=== PATIENT | female | born 1970 | race Caucasian/White ===

== ENCOUNTER 2018-06-11 17:22 | Inpatient (IN) ==
--- NOTE | 2018-06-11 22:30 | Internal Med History&Physical ---
<Marvel Stewart S - Last Filed: 06/12/18 00:13> Date of Encounter: 06/12/18 Time of Encounter: 22:30 Internal Medicine - H&P: HPI Chief complaint: "SOB" Admitted From: Hospital to Hospital Transfer Plans for Post Hospital Care: Home History of present illness: Ms. Gaspar is a 47 year old female with PMH of T2DM who is here from [place] transfer. She initially went ot the hospital because she has been feeling ill the last few days. She has a vague description and is overall a poor historian. She states she has been feeling weaker and more tired. She has had a decreased appetitie and has hardly ate nothing the last few days. She also has complaints of cough. It has been a dry hacking cough and has minimal sputum production. She denies any home oxygen use, hemoptysis, previous diagnosis of COPD or personal hx of lung cancer. She states she has been more SOB lately, however, is still able to complete ADL's. She denies any n/v/d, constipation, headache or blurry vision. She does have c/o peripheral neuropathy for which she takes gabapentin. At [facility] she was found to have a sodium of 115 and bilateral infiltrates. She was given a dose of levaquin and was transferred for further evaluation. The pt denies any seizures at home, or convulsions. She denies hx of heavy alcohol abuse and states she doesn't drink. She does smoke 1.5 ppd of cigarettes, however. In the room the pt had a POC glucose of 441. She denies watching her blood sugars at home and states she never monitors or keeps up with tracking what her normal baseline BG is. She denies knowing what her sugars usually do. Past Med Surg Social Fam HX - Past Medical History Medical history: diabetes, other Additional medical history: DDD Psychiatric history: no psych history - Past Surgical History Surgical History: no surgical history Additional surgical history: Carpal tunnel RT - Social History Smoking Status: Current every day smoker Smokeless Tobacco Status: No (1 PPD) Alcohol use: none Drug use: none Internal Medicine - H&P: Meds metFORMIN [Glucophage] 1,000 mg PO BIDWM 10/07/15 [History] Gabapentin [Neurontin] 600 mg PO TID 03/10/16 [History] HYDROcodone/Acet 5/325 mg [Marquez 5-325 mg] 1 tab PO Q6H PRN 06/11/18 [History] Allergy/AdvReac Type Severity Reaction Status Date / Time No Known Allergies Allergy Verified 02/17/18 07:05 All Systems PM: A 10-system review of systems was performed and is negative for pertinent findings except as documented above in the HPI. - Constitutional Constitutional: fatigue, fever(s), malaise, weakness, no night sweats, no weight loss - EENT Eyes: no blurry vision - Cardiovascular Cardiovascular ROS IM: dyspnea, dyspnea on exertion, no chest pain - Respiratory Respiratory: cough, dyspnea, dyspnea on exertion, chest congestion, pain with cough, no excessive phlegm production, no change in phlegm color - Gastrointestinal Gastrointestinal: abdominal pain, no nausea, no vomiting - Musculoskeletal Musculoskeletal ROS IM: back pain, myalgias - Integumentary Integumentary IM: no rash, no skin ulcer - Neurological Neurological ROS: no convulsions, no dizziness, no frequent falls - Psychiatric Psychiatric: no confusion, no difficulty concentrating - Endocrine Endocrine IM: fatigue - Hematologic/Lymphatic Hematologic/Lymphatic: no easy bleeding, no easy bruising - Constitutional General appearance: Present: cooperative, A&O X 3, no acute distress Exam: x - Head Head exam: Present: atraumatic, normocephalic - Eye Eye exam: Present: sclera anicteric - ENT ENT exam: Present: mucous membranes moist - Neck Neck exam general surgery: Present: trachea midline - Respiratory Respiratory exam: Present: decreased breath sounds, prolonged expiratory phase, wheezes. Absent: accessory muscle use, respiratory distress - Expanded Respiratory Exam Location: decreased breath sounds: Left, Right, Upper, Lower, wheezes: Left, Right, Upper, Lower - Cardiovascular Cardiovascular exam: Present: RRR, +S1, +S2. Absent: clicks, gallop, JVD, rubs - GI/Abdominal GI/Abdominal exam: Present: soft, tenderness, no peritoneal signs. Absent: distended, firm, guarding, hernia, rebound - Extremities Exam Extremities exam: Present: normal capillary refill, normal inspection, warm. Absent: calf tenderness, pedal edema, tenderness - Neurological Exam Neurological exam: Present: alert, oriented X3, no focal deficits - Psychiatric Psychiatric exam: Present: anxious - Skin Skin exam: Present: dry, intact, warm Internal Med - H&P Results - Labs CBC & Chem 7: 06/11/18 22:47 - Assessment and plan (1) Hyponatremia Current Visit: No Status: Acute Assessment and plan: Pt presenting with a sodium of 115, pt does have a hx of low sodium recorded in [facility] - does endorse decreased appetite and fluid intake The pt does appear euvolemic on exam, no rhonchi present and minimal pitting edema - CXR from transfer hospital showed bilateral lung infiltrates, basilar predominance, concerning for pneumonia Pt does have risk factors for lung cancer, including 1.5 ppd x 30 yr smoking hx Denies alcohol use and denies heavy drinking Cannot r/o underlying lung carcinoma Corrected sodium 123, accounting for POC glucose of 441 - psuedohyponatremia from hyperglycemia vs SIADH Currently pt does NOT meet any criteria for sepsis; WBC count WNL, HR and RR WNL. Plan: - 100cc/hr NS x 1 bag - check CT chest in the AM, r/o underlying malignancy - CBC in AM - BMP STAT and again in AM - HDSS to account for pseudohyponatremia 2/2 hyperglycemia - monitor closely for HHS vs DKA - glucose checks - ADA diet - urine studies urine sodium, urine creatinine urine osmolality - consult to nephrology, will call in AM - start azithromycin and rocephin to cover pneumonia, blood cx pending, duonebs for SOB - strep pneumo and legionella antigens pending - random cortisol pending, given hyperkalmemia (2) Hyperglycemia Current Visit: Yes Status: Acute Assessment and plan: Glucose at [place] 336, repeat POC glucose 441 - pt denies measuring glucose at home, is not compliant with finger sticks and monitoring BG at home - likely contributing to hyponatremia, corrected Na is 123 (3) Type 2 diabetes mellitus Current Visit: Yes Status: Acute Assessment and plan: Pt is a T2DM on home metformin, not on home insulin - denies compliance with daily BG monitoring - has had a decreased appetite lately, not eating or drinking very much BG on POC check was 441, likely contributing to hyponatremia - corrected Na 123 (Na 115 on BMP from [place]) Plan: - see plan as above - hold metformin - HDSS, ADA diet 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 Diabetes mellitus complication status: with unspecified complications Qualified Code(s): E11.8 - Type 2 diabetes mellitus with unspecified complications (4) DVT prophylaxis Current Visit: Yes Status: Acute Assessment and plan: sq heparin (5) Bilateral pneumonia Current Visit: No Status: Acute Assessment and plan: CXR from transfer hospital showed bilateral lung infiltrates, basilar predominance, concerning for pneumonia - she was given dose of levaquin at [facility], will continue azithromycin /rocephin - duonebs prn - blood cx pending - legionella/strep pneumo antigens pending Qualifiers: Pneumonia type: due to unspecified organism Lung location: lower lobe of lung Qualified Code(s): J18.1 - Lobar pneumonia, unspecified organism (6) Dyspnea Current Visit: No Status: Acute Assessment and plan: 2/2 pneumonia. (7) Hypertension Current Visit: Yes Status: Acute Assessment and plan: Lopressor ivp q6hr prn SBP >160 Qualifiers: Hypertension type: unspecified Qualified Code(s): I10 - Essential (primary) hypertension (8) Tobacco abuse Current Visit: Yes Status: Acute Assessment and plan: 1.5ppd smoker - counsled - nrt offered (9) Hyperkalemia Current Visit: Yes Status: Acute Assessment and plan: K of 5.4 Plan: - EKG STAT - kayexalate 30mg PO once - calcium gluc - random cortisol to r/o adrenal insufficiency, given hyponatremia co-existing - Time Spent With Patient Total time spent is greater than 50% in coordination of care (as documented) at patient's floor/unit and/or counseling patient: 25 - 35 minutes <Conner Robles - Last Filed: 06/12/18 07:27> Date of Encounter: 06/12/18 Internal Medicine - H&P: HPI History of present illness: Ms. Gaspar is a 47 year old female All Systems PM: A 10-system review of systems was performed and is negative for pertinent findings except as documented above in the HPI. - Constitutional Vitals: Temp Pulse Resp BP Pulse Ox 98.2 F 70 18 152/79 96 06/12/18 03:17 06/12/18 03:17 06/12/18 04:16 06/12/18 03:17 06/12/18 04:16 Internal Med - H&P Results - Labs CBC & Chem 7: 06/12/18 03:36 06/12/18 03:36 Labs: Short CBC 06/12/18 Range/Units 03:36 WBC 7.6 (4.3-11.1) K/mcL Hgb 10.9 L (11.5-15.4) g/dL Hct 30.4 L (35.3-44.9) % Plt Count 225 (140-400) K/mcL Neutrophils # 6.8 (1.6-8.9) K/mcL BMP 06/11/18 06/12/18 22:47 03:36 Sodium 117 L* 122 L Potassium 5.4 H 4.3 Chloride 85 L 90 L Carbon Dioxide 24 23 BUN 8 11 Creatinine 0.47 L 0.48 L Glucose 418 H 370 H Calcium 8.7 9.0 Urine 06/11/18 Range/Units 23:10 Urine Color Yellow (Yellow) Urine Clarity Clear (Clear) Urine pH 6.5 (5.0-8.0) pH Units Ur Specific [place] 1.011 (1.010-1.025) Urine Protein 100 H (Neg-Trace) mg/dL Urine Glucose (UA) >=1000 H (Normal) mg/dL - Time Spent With Patient Total time spent is greater than 50% in coordination of care (as documented) at patient's floor/unit and/or counseling patient: - Attending Attestation I saw and evaluated the patient. I reviewed the residents note, performed my own physical examination and agree with findings and plan as documented in the residents note. Patient seen and examined on 06/12/18. Patient's corrected sodium around 123, has urine sodium of 11.6 and urine osmolality of 270. will try slow fluid hydration, and monitor BMPs closely. She also found to have pneumonia, will continue antibiotics. Follow up blood cultures. Patient currently stable, no acute distress. Nephrology consult later today, appreciate recommendations.
[2018-06-11] MEDS ORDERED: D5% in Water 1,000 ML IVC PRN (22:51)
[2018-06-11] MEDS ORDERED: Dextrose Gel 15 GM/37.5 ML TUBE PO PRN ×2 (22:51)
[2018-06-11] MEDS ORDERED: *HR* Dextrose 50 % in Water (Syg) 50 ML SYRINGE IVP PRN (22:51)
[2018-06-11] MEDS ORDERED: *HR* Metoprolol 5 MG/5 ML VIAL IVP PRN (23:00)
[2018-06-11 23:26] LABS: BUN/Creatinine Ratio 17 (6-26); Blood Urea Nitrogen 8 mg/dL (6-20); Calcium 8.7 mg/dL (8.6-10.3); Carbon Dioxide 24 mEq/L (23-29); Chloride 85 mEq/L (98-107); Glucose 418 mg/dL (70-105); Osmolality,Calculated 260 (280-300); Potassium 5.4 mEq/L (3.5-5.1); Sodium 117 mEq/L (136-145); eGFR For Non-African Americans > 60 (> 60)
[2018-06-11 23:27] LABS: Bilirubin,Urine Negative (Negative); Blood,Urine Moderate (Negative); Clarity,Urine Clear (Clear); Color,Urine Yellow (Yellow); Glucose,Urine (UA) >=1000 mg/dL (Normal); Ketones,Urine 15 mg/dL (Negative); Leukocyte Esterase,Urine Negative (Negative); Nitrite,Urine Negative (Negative); PH,Urine 6.5 pH Units (5.0-8.0); Protein,Urine 100 mg/dL (Neg-Trace); Specific Gravity,Urine 1.011 (1.010-1.025); Urobilinogen,Urine Normal (Normal)
[2018-06-11 23:29] LABS: Bacteria,Urine None Seen per hpf (None-Few); Hyaline Casts,Urine None Seen per lpf (None-Few); RBC,Urine 0-3 per hpf (0-3); Squamous Epithelial Cell,Urine None Seen per lpf (None-Few); WBC,Urine 0-3 per hpf (0-3)
[2018-06-11] MEDS ORDERED: Ipratropium/Albuterol Neb 3 ML IH ONE (23:29)
[2018-06-11] MEDS: Ipratropium/Albuterol Neb 3 ML IH SCH (23:44)
[2018-06-11] MEDS ORDERED: 0.9 % Sodium Chloride 1,000 ML IVC SCH (23:45)
[2018-06-12] MEDS: *HR* Heparin 5,000 UNIT/ML VIAL SQ SCH ×3 (00:07→18:07)
[2018-06-12] MEDS: Insulin LISPRO 300 UNITS/3 ML VIAL SQ SCH ×5 (00:08→21:49)
[2018-06-12] MEDS: Gabapentin 300 MG CAPSULE PO SCH ×4 (00:09→21:52)
[2018-06-12] MEDS: cefTRIAXone 2,000 MG in Water for inj. (sterile) 20 ML 20 ML IVP SCH ×2 (00:10→23:45)
[2018-06-12] MEDS ORDERED: Nicotine 14 MG PATCH.TD24 TD PRN (00:11)
[2018-06-12] MEDS ORDERED: *HR* HYDROcodone/Acet 5/325 mg TABLET PO PRN (00:35)
[2018-06-12 04:16] LABS: Hematocrit 30.4 % (35.3-44.9); Hemoglobin 10.9 g/dL (11.5-15.4); Immature Granulocytes % 0.7 % (0-4); Lymphocytes # 0.5 K/mcL (0.6-4.6); Lymphocytes % 6.1 %; Mean Corpuscular HGB Conc 35.9 g/dL (31.6-35.5); Mean Corpuscular Hemoglobin 30.4 pg (28.0-33.3); Mean Corpuscular Volume 84.7 fL (83.0-100.0); Mean Platelet Volume 9.8 fL (9.4-12.4); Monocytes # 0.2 K/mcL (0.0-1.3); Monocytes % 3.2 %; Neutrophils # 6.8 K/mcL (1.6-8.9); Platelet Count 225 K/mcL (140-400); Red Blood Count 3.59 M/mcL (3.82-4.97); Red Cell Distribution Width 12.7 % (11.5-14.5)
[2018-06-12] MEDS: Ipratropium/Albuterol Neb 3 ML IH SCH ×4 (04:16→22:32)
[2018-06-12 04:31] LABS: BUN/Creatinine Ratio 23 (6-26); Blood Urea Nitrogen 11 mg/dL (6-20); Carbon Dioxide 23 mEq/L (23-29); Chloride 90 mEq/L (98-107); Glucose 370 mg/dL (70-105); Osmolality,Calculated 268 (280-300); Potassium 4.3 mEq/L (3.5-5.1); Sodium 122 mEq/L (136-145); eGFR For Non-African Americans > 60 (> 60)
--- NOTE | 2018-06-12 09:06 | Internal Med Progress Note ---
<Kanchan Rockwell - Last Filed: 06/12/18 17:55> Hospitalist Progress Note - Encounter Date of Encounter: 06/12/18 - Exam Vitals: Temp Pulse Resp BP Pulse Ox 97.7 F 92 20 168/74 95 06/12/18 11:23 06/12/18 11:23 06/12/18 11:23 06/12/18 11:23 06/12/18 11:23 - Time Spent with Patient Total time spent is greater than 50% in coordination of care (as documented) at patient's floor/unit and/or counseling patient: Internal Medicine: Result - Labs CBC & Chem 7: 06/12/18 03:36 06/12/18 16:40 Labs: Short CBC 06/12/18 Range/Units 03:36 WBC 7.6 (4.3-11.1) K/mcL Hgb 10.9 L (11.5-15.4) g/dL Hct 30.4 L (35.3-44.9) % Plt Count 225 (140-400) K/mcL Neutrophils # 6.8 (1.6-8.9) K/mcL BMP 06/11/18 06/12/18 06/12/18 22:47 03:36 08:31 Sodium 117 L* 122 L 122 L Potassium 5.4 H 4.3 Chloride 85 L 90 L Carbon Dioxide 24 23 BUN 8 11 Creatinine 0.47 L 0.48 L Glucose 418 H 370 H Calcium 8.7 9.0 06/12/18 12:07 Sodium 127 L Potassium Chloride Carbon Dioxide BUN Creatinine Glucose Calcium Urine 06/11/18 Range/Units 23:10 Urine Color Yellow (Yellow) Urine Clarity Clear (Clear) Urine pH 6.5 (5.0-8.0) pH Units Ur Specific [place] 1.011 (1.010-1.025) Urine Protein 100 H (Neg-Trace) mg/dL Urine Glucose (UA) >=1000 H (Normal) mg/dL - Impressions Impressions Chest CT 06/12/18 07:40 IMPRESSION: Multifocal airspace disease, suspicious for pneumonia, with mildly enlarged mediastinal nodes, likely reactive. D/ / Kendrick Thrasher MD / Kendrick Thrasher MD Interpreting Provider: Kendrick Thrasher MD Consult Discharge Plan - Plan Referrals: Epi,Jericho Alcaraz, DO [Primary Care Provider] - (Per the doctors office patient is to make his own appointment) - Attending Attestation I examined this patient and my medical decision-making was reviewed with the Resident Physician Jana. I agree with the documented findings, disposition and treatment plan as described except to the extent set forth below. Ms Gaspar is admitted for hyponatremia and pna. She has very elevated blood glucose with hx diabetes and sodium is being corrected for hyperglycemia with each Na check PMHx T2DM with neuropathy, hx etoh use, none currently, tobacco dependence. awake, tired, no nausea, denies confusion. + cough, + sob, comfortable on O2 NC gen- alert, awake,appears stated age eyes- pupils equal round cv- reg rate and rhythm, normal s1,s2, no murmurs appreciated lungs- bibasilar rhonchi, no wheezing,crackles, normal resp effort on o2 nc neuro- AAOx3, CN grossly intact, no focal deficits Hyponatremia- suspect this may be multifactorial , as with correction for signfiicant hyperglycemia, she remains with hyponatremia- given tobacco use and reported wtoh use hx (she denies currently) this could be an siadh picture- urine studies and IVFs started by admitting team at 100cc/hr NS--we have re checked Na this morning upon taking over care and corrected alexandra on admit 122 and currently 126 with ivfs running -nephro contacted personally by myself to notify of consult, Dr Reyna will see her -serial na q4 hr and q 4 hr neuro checks -ct chest ordered on admit to rule out malignancy and noted multifocal pna and no reported sign of malignancy OF NOTE: 1230 pm correct Na 131 (corrected with 11:30 glucose level)- too rapid of correction has developed in last 4 hrs, IVFs stopped by RN, 250 D5W over one hour with pharm preparing urgently, na and glucose check after bag completes and RN to notify team of results, no neuro changes, our team is updating Dr Reyna directly for further recs -we will very closely monitor serial alexandra, glc, and nephro recs as well as neuro checks, our team is in close contact with nursing and nephro regarding this matter Multifocal pna with acute resp failure with hypoxia, organism unknown at this time- Azithro + rocephin, nebs, check RVP Uncontrolled DM- bs 300-400- hold oral agent, high SSI and monitor requirements, likely will need basal insulin HTN- elevated- prn lopressor change to prn sbp >150 (from 160), not on home med, if remains high will need to add medication, cont to monitor Hyperkalemia on admit without ekg changes- resolved with kayexalate further diagnoses and plan as per resident UPDATE: sodium after 250 cc D5W corrects to 127 with glucose obtained at same time. Dr Reyna updated. Nephro rec is to hold any furhter fluids, cont q4hr na levels, upper limit 131 and if any check that or higher give addl O5U--umyr is singed out to night physician team as well as day nurse to sign out to night nursing team <Janee Bates - Last Filed: 06/12/18 21:44> Hospitalist Progress Note - Encounter Date of Encounter: 06/12/18 Time of Encounter: 09:06 - Subjective Interval History: Seen and examined today at bedside. Patient reports difficulty breathing, but notes it improves with breathing treatments. Admits to continued cough, described as dry but was productive last week. She denies chest pain, heart palpitations, wheezing, nausea, abdominal pain, or confusion. She states she takes her metformin as prescribed, but doesn't check her glucose at home. Reports she has a glucometer, but is out of test strips and states her PCP doesn't have her check her glucose with fingersticks and is instead managed by monitoring A1c every 3 months. - Exam Vitals: Temp Pulse Resp BP Pulse Ox 98.3 F 69 18 158/82 94 06/12/18 07:46 06/12/18 07:46 06/12/18 07:46 06/12/18 07:46 06/12/18 07:46 Exam: General: vital signs noted, no acute distress, non-toxic appearance, AAO x3 Head: normocephalic, atraumatic Eyes: EOMI, PERRL, sclera anicteric ENT: moist mucous membranes Neck: supple Cardio: RRR; no murmurs, +S1/S2; no edema Pulm: bilateral wheezing, no respiratory distress Abd: soft, nontender, nondistended Neuro: CN II-XII grossly intact; no focal deficits, moves all extremities spontaneously, mentating well Ext: no lower extremity edema; pedal pulses present and equal bilaterally, no gross deformities Psych: cooperative, answers questions appropriately, doesnt appear anxious or agitated Skin: exposed skin is warm, dry, intact - Assessment and Plan (1) Hyponatremia Current Visit: Yes Status: Acute Assessment and Plan: On admission sodium of 122 (corrected for hyperglycemia), received NS overnight Sodium of 126 this morning (corrected for hyperglycemia) Urine osmolality 270, urine creatinine 10, urine sodium 11.6 On exam, patient does not appear fluid overloaded--no lower extremity edema, no significant pleural fluid noted on CT chest Hyperglycemia contributing to falsely low Na readings, additional factors may be contributing--etiology unclear Plan: Holding fluids because was correcting too quickly Sodium and neuro checks Q4H Seizure precautions Nephrology consulted (2) Community acquired pneumonia Current Visit: Yes Status: Acute Assessment and Plan: Received levaquin at [facility] Influenza negative at OSH CT chest shows multifocal airspace disease in lungs bilaterally that is suspicious for pneumonia; mildly enlarged mediastinal lymph nodes likely reactive Plan: Continue empiric rocephin and azithromycin for now Sputum culture pending collection Lymph nodes will need outpatient f/u with imaging (after PNA has resolved) as cancer cannot be ruled out given h/o tobacco abuse (3) Hyperglycemia Current Visit: Yes Status: Acute Assessment and Plan: Due to underlying DM Contributing to hyponatremia Plan: Continue to monitor on metabolic panel and accu-cheks High dose sliding scale insulin for now Hold home metformin (4) Hypertension Current Visit: Yes Status: Acute Assessment and Plan: SBP 160's-170, DBP 70's-80's No anti-hypertensive home meds or previous diagnosis of HTN Plan: Continue to monitor BP Lopressor PRN for SBP > 150 (5) Type 2 diabetes mellitus Current Visit: Yes Status: Acute Assessment and Plan: Hemoglobin A1c 7.4% November 2017 Takes metformin at home, does not monitor blood sugar regularly Plan: Continue high dose sliding scale insulin for now Repeat hemoglobin A1c Glucose checks AC HS Diabetic diet (6) Hyperkalemia Current Visit: Yes Status: Resolved Assessment and Plan: Resolved, potassium 4.3 today Potassium 5.4 on admission, received Kayexalate 30 mg and calcium gluconate Plan: Monitor with BMP in AM Continue telemetry (7) Tobacco abuse Current Visit: Yes Status: Chronic Assessment and Plan: Nicoderm patches ordered Tobacco cessation urged DVT Prophylaxis: Heparin 5,000 units subcutaneous Q12H - Time Spent with Patient Total time spent is greater than 50% in coordination of care (as documented) at patient's floor/unit and/or counseling patient: Internal Medicine: Result - Labs CBC & Chem 7: 06/12/18 03:36 06/12/18 16:40 Labs: Short CBC 06/12/18 Range/Units 03:36 WBC 7.6 (4.3-11.1) K/mcL Hgb 10.9 L (11.5-15.4) g/dL Hct 30.4 L (35.3-44.9) % Plt Count 225 (140-400) K/mcL Neutrophils # 6.8 (1.6-8.9) K/mcL BMP 06/11/18 06/12/18 22:47 03:36 Sodium 117 L* 122 L Potassium 5.4 H 4.3 Chloride 85 L 90 L Carbon Dioxide 24 23 BUN 8 11 Creatinine 0.47 L 0.48 L Glucose 418 H 370 H Calcium 8.7 9.0 Urine 06/11/18 Range/Units 23:10 Urine Color Yellow (Yellow) Urine Clarity Clear (Clear) Urine pH 6.5 (5.0-8.0) pH Units Ur Specific [place] 1.011 (1.010-1.025) Urine Protein 100 H (Neg-Trace) mg/dL Urine Glucose (UA) >=1000 H (Normal) mg/dL - Impressions Impressions Chest CT 06/12/18 07:40 IMPRESSION: Multifocal airspace disease, suspicious for pneumonia, with mildly enlarged mediastinal nodes, likely reactive. 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
--- NOTE | 2018-06-12 09:18 | Nephrology History & Physical ---
Date of Encounter: 06/12/18 Time of Encounter: 10:00 Assessment and Plan (1) Hyponatremia Current Visit: No Status: Acute -Patient presented at OSH with sodium of 115 -On review of records, patient does not have history of hyponatremia -Patient presented to OSH feeling ill with a cough and shortness of breath for a few days with decreased appetite, poor oral intake -After correction and on presentation at [place], sodium was 122 -Hyponatremia is potentially secondary low solute from poor oral intake vs. SIADH vs. pseudohyponatremia from hyperglycemia -Patient recieved 1x dose of levaquin and started on azithromycin and rocephin to cover pneumonia -CXR- worsening bilateral lung infiltrates, with basilar predominance, concerning for pneumonia. -CT chest shows multifocal airspace disease, suspicious for pneumonia, with mildly enlarged mediastinal nodes -CBC- WBC 7.6, hemoglobin 10.9, hematocrit 30.4, platelets 225 -BMP- Na 122, K 4.3, Cl 90, BUN 11, Cr 0.48, glucose 370 -Repeat Na at 1207 is 127 -Urine Na 11.6, Urine Cr 10, Urine osmolality 270 (low) -Serum osmolality 266 -Random cortisol 5.4 -Legionella and strep pneumo antigens negative -Physical exam-most mucus membranes, no signs of edema diffusely PLAN: -Volume repletion with NS at slow rate -Administer D5W as Na has increased by 12 over the past 25 hours- 115 to 127 -Rate of Na increase should not exceed 6-8 mEq/l/d to avoid central ponitne myelinolysis/osmotic demyelination syndrome -If Na increases to 130 within 24 hours of original Na of 115, administer dDVAP -Monitor Na Q4H (2) Hyperglycemia Current Visit: Yes Status: Acute -Patient has history of T2DM on metformin 100 mg PO BID -Glucose at OSH 336, on presentation to [place] 418, repeat 370 -Patient denies monitoring blood glucose -She reports decreased appetite and poor oral intake -Hyperglycemia is a potential cause of pseudohyponatremia -Corrected sodium 122 -Repeat sodium 127 (3) Type 2 diabetes mellitus Current Visit: Yes Status: Acute -Patient has history of T2DM treated with metformin 1000 mg PO BID -Patient reports that she does not monitor her blood glucose -On admission, glucose was 418 with repeat of 370 at 0330 this AM -Patient reports she has had a decreased appetite and has had poor oral intake recently PLAN: -Hold metformin -Diabetic diet Qualifiers: Diabetes mellitus bed and breakfast operator insulin use: without correction use Diabetes mellitus complication status: with unspecified complications Qualified Code(s): E11.8 - Type 2 diabetes mellitus with unspecified complications (4) Bilateral pneumonia Current Visit: No Status: Acute -Patient presented feeling to hospital in [place] feeling generally ill; was transferred to [place] -Patient reports decreased appetite, dry, nonproductive cough, dyspnea; denies hemoptysis, history of COPD or history of lung cancer -CXR- worsening bilateral lung infiltrates with basilar predominance, concerning for pneumonia -CT chest- multifocal airspace disease, suspicious for pneumonia with mildly enlarged mediastinal nodes, likely reactive -Current every day smoker; 1.5 ppd -Received levaquin x1 at OSH -Legionella and strep pneumo antigens negative PLAN: -Continue azithromycin/rocephin -Duonebs PRN -Blood culture pending. Qualifiers: Pneumonia type: due to unspecified organism Lung location: lower lobe of lung Qualified Code(s): J18.1 - Lobar pneumonia, unspecified organism (5) Hypertension Current Visit: Yes Status: Acute -Patient does not have a history of diagnosed hypertension -Maximum BP at admission- 170/69 -Most recent 168/74 -Patient denies headache, change in vision, LE edema PLAN: -Lopressor IVP Q6H PRN systolic BP >160 Qualifiers: Hypertension type: unspecified Qualified Code(s): I10 - Essential (primary) hypertension (6) Hyperkalemia Current Visit: Yes Status: Acute -Patient presented with potassium of 5.4 -On labs this morning, potassium was 4.3 -On review of [facility], in October of 2016 potassium was 4.1 -Received Kayexalate 30 gm PO x1 and calcium gluconate 220 mL/hr -Random cortisol 5.4 PLAN -Continue to monitor (7) Tobacco abuse Current Visit: Yes Status: Acute -Patient has history of tobacco abuse and is a current, every day smoker -History positive for 1.5 ppd PLAN: -Custom Grinder regarding smoking cessation (8) DVT prophylaxis Current Visit: Yes Status: Acute subcutaneous heparin. History of Present Illness Chief complaint: shortness of breath HPI: Ms. Gaspar is a 47 year old female with past medical history of T2Dm treated with metformin 1000 mg PO BID who presented to OSH in [place] as she was feeling generally ill xfew days. Patient additionally reported dry, nonproductive cough, decreased appetite with poor oral intake and increased shortness of breath. She denied nausea, vomiting, constipation, diarrhea, h emoptysis, headache or change in vision. At OSH, patient's Na was 115. CXR revealed bilateral infiltrates with basilar predominance concerning for pneumonia. Patient received 1x dose of levaquin and was transferred for further care at [place]. Patient's corrected Na was 122. Blood gluocose was 441; this AM was 370. She denies monitoring her blood glucose at home. On examination, patient was asleep when entering the room but awoke without difficulty. She was examined at bedside. She denied chest pain, shortness of breath, headache, LE edema, vomiting. She reported poor appetite x4-5 days, nausea, nonproductive cough, and chills. Past Med Surg Social Fam HX - Past Medical History Medical history: diabetes, other Additional medical history: DDD Psychiatric history: no psych history - Past Surgical History Surgical History: no surgical history Additional surgical history: Carpal tunnel RT - Social History Smoking Status: Current every day smoker Smokeless Tobacco Status: No (1 PPD) Alcohol use: none Drug use: none Medications and Allergies metFORMIN [Glucophage] 1,000 mg PO BIDWM 10/07/15 [History] Gabapentin [Neurontin] 300 mg PO 5XD 03/10/16 [History] HYDROcodone/Acet 5/325 mg [[place] 5-325 mg] 1 tab PO TID PRN 06/11/18 [History] Allergy/AdvReac Type Severity Reaction Status Date / Time No Known Allergies Allergy Verified 02/17/18 07:05 Review of Systems - Constitutional anorexia, chills, fever(s), malaise - EENT Nose, mouth and throat: no headache(s) - Cardiovascular edema, no chest pain, no leg edema - Respiratory cough, no dyspnea - Gastrointestinal nausea, no abdominal pain, no vomiting - Musculoskeletal bilateral: foot pain (history of diabetic neuropathy) Exam - Vital Signs Vital signs: Initial Vital Signs Temp Pulse Resp BP Pulse Ox 98.3 F 79 20 170/69 96 06/11/18 22:21 06/11/18 22:21 06/11/18 22:21 06/11/18 22:21 06/11/18 22:21 Vital Signs - Last 8 Hours Temp Pulse Resp BP Pulse Ox 06/12/18 07:46 98.3 F 69 18 158/82 94 06/12/18 04:16 18 96 06/12/18 03:17 98.2 F 70 18 152/79 95 Intake and Output 06/11/18 06/12/18 06/12/18 23:59 07:59 15:59 Intake Total 130 / 130 240 / 240 Output Total 400 / 400 100 / 100 Balance -400 / -400 30 / 30 240 / 240 Intake: IV Fluids 130 / 130 Rocephin 2,000 MG In Water for inj. (sterile) 20 ML @ 600 mls/ hr IVP Q24H [facility] Rx#:[id number] Calcium Gluconate 1,000 MG In 0 110 / 110 .9 % Sodium Chloride 100 ML @ 220 mls/hr IVPB ONCE ONE Rx#: [id number] Oral 240 / 240 Output: Urine 400 / 400 100 / 100 Other: Meal Breakfast Percent of Meal Consumed 15% # Bowel Movements 1 Weight 81.2 kg 81.3 kg Blood Glucose* 431 323 Patient Weight 06/12/18 23:59 Weight 81.3 kg - General Appearance General appearance: well-developed, well-nourished, appears started age, fatigue EENT: ATNC, mucous membranes moist, hearing intact Neck: supple Respiratory: clear Cardiology: no murmurs, no edema, regular rate, regular rhythm, normal S1, normal S2 Gastrointestinal: normoactive bowel sounds, tenderness, no guarding, no masses Integumentary: no rash, warm and dry Neurologic: no focal deficit Musculoskeletal: no deformities Psychiatric: mood/affect appropriate, cooperative Results - Lab Results 06/12/18 03:36 06/12/18 12:07 Most recent lab results Calcium 9.0 mg/dL (8.6-10.3) 06/12/18 03:36 Urine Creatinine 10 mg/dL 06/11/18 23:10 Urine Sodium 11.6 mEq/L 06/11/18 23:10
[2018-06-12] MEDS: Azithromycin 250 MG TABLET PO SCH (09:43)
[2018-06-12] MEDS ORDERED: 0.9 % Sodium Chloride 1,000 ML IVC SCH (12:00)
[2018-06-12] MEDS ORDERED: D5% in Water 250 ML IVC SCH ×2 (14:00→14:45)
[2018-06-12] MEDS ORDERED: *HR* Metoprolol 5 MG/5 ML VIAL IVP PRN (14:27)
--- NOTE | 2018-06-12 18:32 | Electrocardiograph Report ---
[address] [address] Test Date: 2018-06-12 Pat Name: Edgar Gaspar Department: 110 Room: 2N10 Gender: F Die Cutting Machine Operator: : 1970 Requested By: Marvel Stewart Order Number: [id number] Reading MD: Jessy Armando Measurements Intervals [place] Rate: 73 P: 63 KS: 170 QRS: 24 QRSD: 74 T: 43 QT: 369 QTc: 394 Interpretive Statements SINUS RHYTHM Electronically Signed On 06-12-2018 18:30:55 EST by Jessy Armando
[2018-06-12] MEDS ORDERED: Ipratropium/Albuterol Neb 3 ML IH ONE (19:53)
[2018-06-12] MEDS: Insulin DETEMIR 100 UNIT/ML X5UNITS SQ SCH (23:46)
[2018-06-13] MEDS: Ipratropium/Albuterol Neb 3 ML IH SCH ×4 (04:07→22:23)
[2018-06-13] MEDS: *HR* Heparin 5,000 UNIT/ML VIAL SQ SCH ×2 (05:44→17:39)
[2018-06-13 07:44] LABS: Basophils % 0.1 %; Eosinophils # 0.1 K/mcL (0.0-0.6); Eosinophils % 0.6 %; Hematocrit 29.4 % (35.3-44.9); Hemoglobin 10.3 g/dL (11.5-15.4); Immature Granulocytes % 0.5 % (0-4); Lymphocytes # 1.5 K/mcL (0.6-4.6); Lymphocytes % 15.9 %; Mean Corpuscular Hemoglobin 30.1 pg (28.0-33.3); Mean Platelet Volume 9.4 fL (9.4-12.4); Monocytes # 0.4 K/mcL (0.0-1.3); Monocytes % 4.2 %; Neutrophils # 7.6 K/mcL (1.6-8.9); Platelet Count 270 K/mcL (140-400); Red Blood Count 3.42 M/mcL (3.82-4.97); Red Cell Distribution Width 12.9 % (11.5-14.5); Segmented Neutrophils % 78.7 %
[2018-06-13 08:04] LABS: BUN/Creatinine Ratio 28 (6-26); Blood Urea Nitrogen 10 mg/dL (6-20); Calcium 8.5 mg/dL (8.6-10.3); Carbon Dioxide 26 mEq/L (23-29); Chloride 91 mEq/L (98-107); Glucose 164 mg/dL (70-105); Osmolality,Calculated 263 (280-300); Potassium 3.3 mEq/L (3.5-5.1); Sodium 125 mEq/L (136-145); eGFR For Non-African Americans > 60 (> 60)
[2018-06-13] MEDS: Gabapentin 300 MG CAPSULE PO SCH ×3 (08:55→20:27)
[2018-06-13] MEDS: Azithromycin 250 MG TABLET PO SCH (08:55)
[2018-06-13] MEDS: Insulin LISPRO 300 UNITS/3 ML VIAL SQ SCH ×4 (08:57→20:26)
--- NOTE | 2018-06-13 09:27 | Internal Med Progress Note ---
<Giovanni Riojas - Last Filed: 06/13/18 19:05> Hospitalist Progress Note - Encounter Date of Encounter: 06/13/18 - Exam Vitals: Temp Pulse Resp BP Pulse Ox 98.0 F 77 16 145/76 94 06/13/18 18:54 06/13/18 18:54 06/13/18 18:54 06/13/18 18:54 06/13/18 18:54 - Assessment and Plan (1) Hypertension Current Visit: Yes Status: Acute (2) Hyponatremia Current Visit: Yes Status: Acute (3) Type 2 diabetes mellitus Current Visit: Yes Status: Chronic (4) Pneumonia Current Visit: Yes Status: Suspected (5) Tobacco abuse Current Visit: Yes Status: Chronic (6) COPD (chronic obstructive pulmonary disease) Current Visit: Yes Status: Suspected - Time Spent with Patient Total time spent is greater than 50% in coordination of care (as documented) at patient's floor/unit and/or counseling patient: Internal Medicine: Result - Labs CBC & Chem 7: 06/13/18 07:04 06/13/18 16:55 Labs: Short CBC 06/13/18 Range/Units 07:04 WBC 9.7 (4.3-11.1) K/mcL Hgb 10.3 L (11.5-15.4) g/dL Hct 29.4 L (35.3-44.9) % Plt Count 270 (140-400) K/mcL Neutrophils # 7.6 (1.6-8.9) K/mcL BMP 06/12/18 06/13/18 06/13/18 20:47 00:51 07:04 Sodium 126 L 123 L 125 L Potassium 3.3 L Chloride 91 L Carbon Dioxide 26 BUN 10 Creatinine 0.36 L Glucose 164 H Calcium 8.5 L 06/13/18 06/13/18 11:07 16:55 Sodium 121 L 121 L Potassium Chloride Carbon Dioxide BUN Creatinine Glucose Calcium Consult Discharge Plan - Plan Referrals: Jericho Chowdary DO [Primary Care Provider] - (Per the doctors office patient is to make his own appointment) - Attending Attestation I examined this patient and my medical decision-making was reviewed with the Resident Physician on 06/13/18. I agree with the documented findings, disposition and treatment plan as described except to the extent set forth below. Ms Gaspar is currently admitted for hyponatremia and pneumonia. She remains moderate to high risk due to potential for worsening clinical status. Ms Gaspar is sitting on edge of bed. No fever or chills. Wheezing some today. Wants to go home but sodium still low. No CP. Exam alert COmfortable Mucus membranes dry Heart reg End exp wheeze noted Abd soft and nontender No edema I/P 1. Hyponatremia 2. Pneumonia 3. COPD 4. HTN - uncontrolled. Meds adjusted as needed. 5. DM - uncontrolled 6. Hypokalemia - new today Further diagnoses and plan as above <Janee Bates - Last Filed: 06/13/18 19:21> Hospitalist Progress Note - Encounter Date of Encounter: 06/13/18 Time of Encounter: 09:50 - Subjective Interval History: Seen and examined today at bedside. Patient is awake and seated on edge of bed. She reports no events overnight and slept well. Cough now somewhat productive of sputum, cough was dry yesterday. Neb treatments continue to be helpful. Denies fevers, chills, chest pain, nausea, vomiting, abdominal pain. Tolerating PO intake. Patient feeling better overall and would like to go home. - Exam Vitals: Temp Pulse Resp BP Pulse Ox 97.8 F 73 18 145/79 93 06/13/18 07:31 06/13/18 07:31 06/13/18 07:31 06/13/18 07:31 06/13/18 07:31 Exam: General: vital signs noted, no acute distress, non-toxic appearance, AAO x3 Head: normocephalic, atraumatic Eyes: EOMI, PERRL, sclera anicteric ENT: moist mucous membranes Neck: supple Cardio: RRR; no murmurs, +S1/S2; no edema Pulm: bilateral wheezing, no respiratory distress, oxygenating > 90% room air Abd: soft, nontender, nondistended Neuro: no focal deficits, moves all extremities spontaneously, mentating well Ext: no lower extremity edema; pedal pulses present and equal bilaterally, no gross deformities Psych: cooperative, answers questions appropriately, doesnt appear anxious or agitated Skin: exposed skin is warm, dry, intact - Assessment and Plan (1) Hyponatremia Current Visit: Yes Status: Acute Assessment and Plan: Improved--corrected Na 126 this morning On admission sodium of 122 (corrected for hyperglycemia) Received NS infusion on night of admission Urine osmolality 270, urine creatinine 10, urine sodium 11.6 Patient does not appear fluid overloaded--no lower extremity edema, no crackles on lung auscultation, no significant pleural fluid noted on CT chest Multiple factors contributing to initial presentation including hyperglycemia and several days of decreased PO intake d/t poor appetite Per nephrology recommendations, will give 500 mL NS @ 75 mL/hr x 1 bag Recheck Na Q6H Goal Na rate of correction: 6-8 mEq/L per 24 hours Target Na around 130 Nephrology following (2) Community acquired pneumonia Current Visit: Yes Status: Acute Assessment and Plan: Influenza negative at [place] CT chest shows multifocal airspace disease in lungs bilaterally suspicious for pneumonia and mildly enlarged mediastinal lymph nodes that are likely reactive Empiric rocephin and azithromycin Legionella and Strep pneumo urine antigens negative Preliminary sputum culture shows < 10 per hpf Gram positive and negative rods, Gram positive cocci, and Gram negative diplococci Suspicious for underlying chronic lung disease secondary to tobacco abuse Plan: Continue empiric abx; await final sputum culture results Lymph nodes will need outpatient f/u with imaging (after PNA has resolved) as cancer cannot be ruled out given h/o tobacco abuse Prednisone 40 mg PO QD Continue DuoNebs Patient may benefit from bonchodilator inhaler on discharge (3) Hyperglycemia Current Visit: Yes Status: Acute Assessment and Plan: Improved, blood glucose 164 this morning On admission POC glucose 440 Contributing factor to initial presentation with hyponatremia Continue high dose SSI for now (4) Hypertension Current Visit: Yes Status: Acute Assessment and Plan: Improved 170/69 on presentation, no known h/o HTN Over last 24 hours SBP < 150 and DBP < 90 PRN metoprolol 5 mg IV is available for systolic > 150, but has not been needed (5) Type 2 diabetes mellitus Current Visit: Yes Status: Chronic Assessment and Plan: Hgb A1c 7.4% (November 2017) On recheck, Hgb A1c 9.7% Takes metformin at home, does not monitor blood sugar regularly Poor control of DM likely contributed to hyponatremia on presentation Plan: Continue high dose sliding scale insulin for now Glucose checks AC HS Diabetic diet (6) Hypokalemia Current Visit: Yes Status: Acute Assessment and Plan: New today, potassium 3.3 Give 40 mEq PO potassium and recheck level on BMP tomorrow morning (7) Hyperkalemia Current Visit: Yes Status: Resolved Assessment and Plan: Resolved, potassium 3.3 today Potassium 5.4 on admission, received Kayexalate 30 mg and calcium gluconate Plan: Slightly hypokalemic today, will give 40 mEq PO potassium and recheck level on BMP tomorrow morning (8) Tobacco abuse Current Visit: Yes Status: Chronic Assessment and Plan: Nicoderm patches available PRN Tobacco cessation strongly recommended DVT Prophylaxis: Heparin 5,000 units subcutaneous Q12H - Time Spent with Patient Total time spent is greater than 50% in coordination of care (as documented) at patient's floor/unit and/or counseling patient: Internal Medicine: Result - Labs CBC & Chem 7: 06/13/18 07:04 06/13/18 16:55 Labs: Short CBC 06/13/18 Range/Units 07:04 WBC 9.7 (4.3-11.1) K/mcL Hgb 10.3 L (11.5-15.4) g/dL Hct 29.4 L (35.3-44.9) % Plt Count 270 (140-400) K/mcL Neutrophils # 7.6 (1.6-8.9) K/mcL BMP 06/12/18 06/12/18 06/12/18 08:31 12:07 16:40 Sodium 122 L 127 L 123 L Potassium Chloride Carbon Dioxide BUN Creatinine Glucose Calcium 06/12/18 06/13/18 06/13/18 20:47 00:51 07:04 Sodium 126 L 123 L 125 L Potassium 3.3 L Chloride 91 L Carbon Dioxide 26 BUN 10 Creatinine 0.36 L Glucose 164 H Calcium 8.5 L <Giovanni Riojas - Last Filed: 06/13/18 19:05> (1) Hypertension Qualifiers: Hypertension type: essential hypertension Qualified Code(s): I10 - Essential (primary) hypertension (3) Type 2 diabetes mellitus Qualifiers: Diabetes mellitus half-way insulin use: without emt intermediate use Diabetes mellitus complication status: with hyperglycemia Qualified Code(s): E11.65 - Type 2 diabetes mellitus with hyperglycemia (4) Pneumonia Qualifiers: Pneumonia type: due to Pneumococcus Laterality: bilateral Lung location: lower lobe of lung Qualified Code(s): J13 - Pneumonia due to Streptococcus pneumoniae (6) COPD (chronic obstructive pulmonary disease) Qualifiers: COPD type: COPD with acute exacerbation Qualified Code(s): J44.1 - Chronic obstructive pulmonary disease with (acute) exacerbation <Janee Bates - Last Filed: 06/13/18 19:21> (2) Community acquired pneumonia Qualifiers: Laterality: unspecified laterality Qualified Code(s): J18.9 - Pneumonia, unspecified organism (4) Hypertension Qualifiers: Hypertension type: essential hypertension Qualified Code(s): I10 - Essential (primary) hypertension (5) Type 2 diabetes mellitus Qualifiers: Diabetes mellitus half-way insulin use: without half-way use Diabetes mellitus complication status: with hyperglycemia Qualified Code(s): E11.65 - Type 2 diabetes mellitus with hyperglycemia
--- NOTE | 2018-06-13 10:21 | Nephrology Progress Note ---
Date of Encounter: 06/13/18 Time of Encounter: 10:00 - Assessment and Plan (1) Hyponatremia Current Visit: Yes Status: Acute -Patient presented at OSH with sodium of 115 -Patient presented to OSH feeling ill with a cough and shortness of breath for a few days with decreased appetite, poor oral intake -After correction and on presentation at [place], sodium was 122 -Hyponatremia is potentially secondary low solute from poor oral intake vs. SIADH vs. pseudohyponatremia from hyperglycemia -CXR- worsening bilateral lung infiltrates, with basilar predominance, concerning for pneumonia. CT chest shows multifocal airspace disease, suspicious for pneumonia, with mildly enlarged mediastinal nodes -CBC- WBC 9.7, hemoglobin 10.3, hematocrit 29.3, platelets 270 -BMP- Na 125, K 4.3, Cl 90, BUN 10, Cr 0.36, glucose 164 -Physical exam-most mucus membranes, no signs of edema diffusely PLAN: -Volume repletion with NS at slow rate -From nephrology stand point, when Na increases to 130, patient may be discharge pending decision from primary team -Check magnesium -Monitor Na Q6H -Upon discharge, follow up with nephrology in outpatient setting. (2) Hyperglycemia Current Visit: Yes Status: Acute -Patient has history of T2DM on metformin 100 mg PO BID -Glucose at OSH 336, on presentation to [place] 418, repeat 370 -Patient denies monitoring blood glucose -She reports decreased appetite and poor oral intake -Hyperglycemia is a potential cause of pseudohyponatremia -Corrected sodium 122 -Na 125 today -Glucose 164 -Hemoglobin A1c 9.7 PLAN: -Follow up with outpatient PCP regarding DM management -Hold metformin -Diabetic diet (3) Type 2 diabetes mellitus Current Visit: Yes Status: Chronic -Patient has history of T2DM treated with metformin 1000 mg PO BID -Patient reports that she does not monitor her blood glucose -On admission, glucose was 418 -Patient reports she has had a decreased appetite and has had poor oral intake recently -Glucose on AM labs 164 -Hemoglobin A1c 9.7 PLAN: -Hold metformin -Diabetic diet Qualifiers: Diabetes mellitus termite treater insulin use: without termite treater use Diabetes mellitus complication status: with unspecified complications Qualified Code(s): E11.8 - Type 2 diabetes mellitus with unspecified complications (4) Hypertension Current Visit: Yes Status: Acute -Patient does not have a history of diagnosed hypertension -Maximum BP at admission- 170/69 -Most recent 138/75 -Patient reports headache; denies change in vision, LE edema PLAN: -Lopressor IVP Q6H PRN systolic BP >160 Qualifiers: Hypertension type: unspecified Qualified Code(s): I10 - Essential (primary) hypertension (5) Hyperkalemia Current Visit: Yes Status: Resolved -Patient presented with potassium of 5.4 -Potassium this AM low at 3.3 PLAN -Replace with 40 mEq now and additional 40 mEq this evening -Continue to monitor Subjective Principal diagnosis: Multifactorial hyponatremia Interval history: Ms. Gaspar is a 47 year old female with past medical history of T2Dm treated with metformin 1000 mg PO BID who presented to OSH in [place] as she was feeling generally ill xfew days. Patient additionally reported dry, nonproductive cough, decreased appetite with poor oral intake and increased shortness of breath. She denied nausea, vomiting, constipation, diarrhea, hemoptysis, headache or change in vision. At OSH, patient's Na was 115. CXR revealed bilateral infiltrates with basilar predominance concerning for pneumonia. Patient received 1x dose of levaquin and was transferred for further care at [place]. Patient's corrected Na was 122. Blood gluocose was 441; this AM was 370. She denies monitoring her blood glucose at home. On examination, patient was asleep upon entering the room but awoke without difficulty. She was examined at bedside. She reported headaches. She denied chest pain, shortness of breath, LE edema, vomiting, nausea, fever, chills. Patient reports continued feelings of tiredness but states she wants to go home. Objective - Vital Signs Vital signs: Vital Signs Temp Pulse Resp BP Pulse Ox 06/13/18 07:31 97.8 F 73 18 145/79 93 06/13/18 04:41 97.9 F 80 20 132/62 95 06/13/18 04:07 16 92 06/12/18 23:30 98.2 F 90 18 130/70 92 06/12/18 22:33 24 93 06/12/18 20:30 97.4 F L 73 19 144/71 97 06/12/18 17:13 97.8 F 70 20 142/86 96 06/12/18 16:14 16 96 06/12/18 11:23 97.7 F 92 20 168/74 95 06/12/18 10:37 16 96 Intake and Output 06/12/18 06/13/18 06/13/18 23:59 07:59 15:59 Intake Total 240 / 240 500 / 500 600 / 600 Output Total 0 / 0 580 / 580 Balance 240 / 240 -80 / -80 600 / 600 Intake: Oral 240 / 240 500 / 500 600 / 600 Output: Urine 0 / 0 580 / 580 Other: Meal Dinner Breakfast Percent of Meal Consumed 95% 100% Weight 82.3 kg Blood Glucose* 138 150 Patient Weight 06/13/18 23:59 Weight 82.3 kg - General Appearance General appearance: Present: well-developed, well-nourished, appears started age, fatigue EENT: Present: ATNC, mucous membranes moist Respiratory: Present: clear Cardiology: Present: no murmurs, no edema, regular rate, regular rhythm, normal S1, normal S2 Integumentary: Present: warm and dry Musculoskeletal: Present: no deformities Psychiatric: Present: mood/affect appropriate - Lab 06/13/18 07:04 06/13/18 11:07 Most recent lab results Calcium 8.5 mg/dL (8.6-10.3) L 06/13/18 07:04 Urine Creatinine 10 mg/dL 06/11/18 23:10 Urine Sodium 11.6 mEq/L 06/11/18 23:10 Consult Discharge Plan - Plan Referrals: Jericho Chowdary DO [Primary Care Provider] - (Per the doctors office patient is to make his own appointment)
[2018-06-13 10:29] LABS: Estimated Average Glucose 232 mg/dl; Hemoglobin A1C 9.7 %
[2018-06-13] MEDS: predniSONE 20 MG TABLET PO SCH (11:49)
[2018-06-13] MEDS ORDERED: 0.9 % Sodium Chloride 500 ML IVC SCH (13:45)
[2018-06-13] MEDS: Insulin DETEMIR 100 UNIT/ML X5UNITS SQ SCH (20:26)
[2018-06-14] MEDS: cefTRIAXone 2,000 MG in Water for inj. (sterile) 20 ML 20 ML IVP SCH (01:13)
[2018-06-14] MEDS: Ipratropium/Albuterol Neb 3 ML IH SCH ×2 (03:46→10:00)
[2018-06-14] MEDS: *HR* Heparin 5,000 UNIT/ML VIAL SQ SCH (06:06)
[2018-06-14 07:12] VITALS: BP 147/83
[2018-06-14 07:12] LABS: Basophils % 0.1 %; Eosinophils # 0.1 K/mcL (0.0-0.6); Eosinophils % 0.6 %; Hematocrit 29.6 % (35.3-44.9); Hemoglobin 10.3 g/dL (11.5-15.4); Lymphocytes # 1.7 K/mcL (0.6-4.6); Lymphocytes % 18.8 %; Mean Corpuscular HGB Conc 34.8 g/dL (31.6-35.5); Mean Corpuscular Hemoglobin 30.4 pg (28.0-33.3); Mean Corpuscular Volume 87.3 fL (83.0-100.0); Mean Platelet Volume 9.2 fL (9.4-12.4); Monocytes # 0.5 K/mcL (0.0-1.3); Neutrophils # 6.6 K/mcL (1.6-8.9); Platelet Count 292 K/mcL (140-400); Red Blood Count 3.39 M/mcL (3.82-4.97); Red Cell Distribution Width 13.1 % (11.5-14.5); Segmented Neutrophils % 73.5 %
[2018-06-14 07:35] LABS: BUN/Creatinine Ratio 28 (6-26); Blood Urea Nitrogen 9 mg/dL (6-20); Calcium 8.7 mg/dL (8.6-10.3); Carbon Dioxide 26 mEq/L (23-29); Chloride 101 mEq/L (98-107); Glucose 95 mg/dL (70-105); Osmolality,Calculated 274 (280-300); Potassium 3.8 mEq/L (3.5-5.1); Sodium 133 mEq/L (136-145); eGFR For Non-African Americans > 60 (> 60)
[2018-06-14] MEDS: Insulin LISPRO 300 UNITS/3 ML VIAL SQ SCH (08:17)
[2018-06-14] MEDS: Azithromycin 250 MG TABLET PO SCH (08:18)
[2018-06-14] MEDS: Gabapentin 300 MG CAPSULE PO SCH (08:18)
--- NOTE | 2018-06-14 09:29 | Discharge Summary ---
<Giovanni Riojas - Last Filed: 06/14/18 19:38> Orders not resulted at time of discharge: Pending orders 06/12/18 23:55 Culture,Sputum with Gram Stain [RM] Routine Date of Encounter: 06/14/18 - Discharge Diagnosis (1) Hypertension Status: Resolved Qualifiers: Hypertension type: essential hypertension Qualified Code(s): I10 - Essential (primary) hypertension (2) Hyponatremia Status: Resolved (3) Type 2 diabetes mellitus Status: Chronic Qualifiers: Diabetes mellitus termite treater helper insulin use: without termite treater helper use Diabetes mellitus complication status: with hyperglycemia Qualified Code(s): E11.65 - Type 2 diabetes mellitus with hyperglycemia (4) Pneumonia Status: Suspected Qualifiers: Pneumonia type: due to Pneumococcus Laterality: bilateral Lung location: lower lobe of lung Qualified Code(s): J13 - Pneumonia due to Streptococcus pneumoniae (5) Tobacco abuse Status: Chronic (6) COPD (chronic obstructive pulmonary disease) Priority: Secondary Status: Suspected Qualifiers: COPD type: COPD with acute exacerbation Qualified Code(s): J44.1 - Chronic obstructive pulmonary disease with (acute) exacerbation Hospital course: Ms. Gaspar is a 47 year old female - Time Spent with Patient Total time spent providing and/or coordinating discharge services: 39min - Discharge Medications Prescriptions: Ipratropium/Albuterol Neb [Duoneb] 3 ml IH [id number] PRN #100 inhsol PRN Reason: Wheezing Albuterol Sulfate [Albuterol Inhaler] 1 puff IH Q4H PRN #1 inhaler PRN Reason: Wheezing Nicotine Patch [Nicoderm] 14 mg TD DAILY #30 patch.td24 predniSONE [PredniSONE] 20 mg PO DAILY #3 tablet Home Medications: metFORMIN [Glucophage] 1,000 mg PO BIDWM 10/07/15 [History] Gabapentin [Neurontin] 300 mg PO 5XD 03/10/16 [History] HYDROcodone/Acet 5/325 mg [[place] 5-325 mg] 1 tab PO TID PRN 06/11/18 [History] Albuterol Sulfate [Albuterol Inhaler] 1 puff IH Q4H PRN #1 inhaler 06/14/18 [Rx] Ipratropium/Albuterol Neb [Duoneb] 3 ml IH [id number] PRN #100 inhsol 06/14/18 [Rx] Nicotine Patch [Nicoderm] 14 mg TD DAILY #30 patch.td24 06/14/18 [Rx] predniSONE [PredniSONE] 20 mg PO DAILY #3 tablet 06/14/18 [Rx] Allergies/Adverse Reactions: Allergy/AdvReac Type Severity Reaction Status Date / Time No Known Allergies Allergy Verified 02/17/18 07:05 Date of admission: 06/12/18 09:35 Primary care physician: Jericho Chowdary Consults: 06/11/18 22:54 Consult to Nephrology [CONS] Routine Consulting Provider: [facility]/PEDRO/JANNETH/JESICA Reason for Consult: hyponatremia na 117 Call Completed: No - Constitutional Vitals: Temp Pulse Resp BP Pulse Ox 97.8 F 68 16 147/83 93 06/14/18 06:50 06/14/18 06:50 06/14/18 10:00 06/14/18 06:50 06/14/18 10:00 - Patient Status Disposition: Home, Self-Care Condition: Good - Discharge Instructions Follow Up With: Jericho Chowdary DO [Primary Care Provider] - (Per the doctors office patient is to make his own appointment) Additional Instructions: Follow-up appointments: If there is not an appointment listed below, please call your physician and schedule a follow-up appointment. If you have congestive heart failure and your symptoms return, make an appointment with your physician. Medication List: Carry an up to date list of medications you are taking at all time. We have given you an updated medication list including any new medications that you have been prescribed. Please provide that list to your primary provider Symptoms: If your condition changes or you experience any of the following symptoms, notify your physician immediately: Unusual or worsening pain, fever, persistent nausea and vomiting, bleeding, increase in swelling (especially in your legs), sudden weight gain, extreme dizziness, chest pain, increased drainage or redness from a wound or incision. Go to the emergency department if you experience a problem with breathing. Weights: If you have a history of swelling or shortness of breath, weigh yourself daily and notify your physician if you have a weight gain of two or more pounds in one day or 5 or more pounds in a week. If you experience any of the warning signs for stroke: Sudden numbness or weakness of the face, arm or leg; especially on one side of the body, sudden confusion, trouble speaking or understanding, sudden trouble seeing in one or both eyes, sudden trouble walking, dizziness, loss of balance or coordination, sudden sever headache with no cause; Call 911 or go to the emergency room. Stroke is a medical emergency. Some risk factors for stroke: Age, cigarette smoking, diabetes, excessive alcohol consumption, family history, high blood pressure, overweight, physical inactivity, prior stroke, heart attack, diagnosis of carotid artery stenosis or other artery disease. If you smoke, STOP: Smoking or tobacco use significantly increases your risk of heart and lung disease. Your chance of disease greatly increases if you continue to smoke. For more information, call the [employer] quit line for smoking cessation 05-08-QUIT-NOW ( ) - Attending Attestation I examined this patient and my medical decision-making was reviewed with the Resident Physician on 06/14/18. I agree with the documented findings, disposition and treatment plan as described except to the extent set forth below. Ms Gaspar has been admitted due to hyponatremia and presumed COPD exacerbation. She has responded to treatment and sodium has improved. Her breathing has improved with treatment as well. She had increased glucose with steroids. She is now afebrile and ready for discharge home. Exam alert Comfortable Mucus membranes dry Heart reg and not tachy No wheeze today ABd soft Plan D/C home Will need outpatient follow up for sugar and eval lung function - suspect COPD. <Janee Bates - Last Filed: 06/14/18 22:18> - NOTES TO OUTPATIENT PROVIDER Notes to Outpatient Provider: - Hyponatremia on admission with blood glucose in 400's. Hgb A1c increased to 9.7%, previously 7.4%. Consider adding another medication to current metformin for improved glucose control. - CT chest with e nlarged mediastinal lymph nodes, likely reactive. Recommend f/u imaging after PNA resolved, unable to rule out cancer. - Suspect COPD given h/o tobacco abuse, wheezing improved with bronchodilators. Consider outpatient PFT's. Orders not resulted at time of discharge: Pending orders 06/12/18 23:55 Culture,Sputum with Gram Stain [RM] Routine 06/14/18 11:00 Sodium Q6H Date of Encounter: 06/14/18 Time of Encounter: 09:09 - Discharge Diagnosis (1) Hyponatremia Priority: Primary Status: Resolved (2) Community acquired pneumonia Priority: Secondary Status: Acute Qualifiers: Laterality: unspecified laterality Qualified Code(s): J18.9 - Pneumonia, unspecified organism (3) Hyperglycemia Priority: Secondary Status: Acute (4) Hypertension Priority: Secondary Status: Resolved Qualifiers: Hypertension type: essential hypertension Qualified Code(s): I10 - Essential (primary) hypertension (5) Type 2 diabetes mellitus Priority: Secondary Status: Chronic Qualifiers: Diabetes mellitus group home insulin use: without group home use Diabetes mellitus complication status: with hyperglycemia Qualified Code(s): E11.65 - Type 2 diabetes mellitus with hyperglycemia (6) Hypokalemia Priority: Secondary Status: Resolved (7) Hyperkalemia Priority: Secondary Status: Resolved (8) Tobacco abuse Priority: Secondary Status: Chronic Hospital course: Ms. Gaspar is a 47 year old female who was admitted 06/11/18 with hyponatremia and presumed community acquired pneumonia. Hyponatremia suspected to have multifactorial etiology including hyperglycemia secondary to poorly controlled DM and decreased PO intake for several days prior to presentation. Presenting Na corrected value of 122, received IV fluids, nephrology was consulted and over course of hospital stay hyponatremia resolved and was stable at time of discharge. Hgb A1c 9.7%, increased since November 2017 value of 7.4%. Blood glucose was in 400's on presentation and improved with sliding scale insulin. CT chest showed multifocal airspace disease suspicious for pneumonia. Received empiric rocephin and azithromycin. She was discharged home on azithromycin as well as short course oral prednisone, concern for possibility of underlying chronic obstructive airway disease. CT chest also showed mildly enlarged mediastinal lymphnodes presumed to be reactive, however possibility of lung cancer could not be ruled out--follow up outpatient imaging after resolution of pneumonia recommended. Patient was afebrile and hemodynamically stable throughout her hospital course. Elevated blood pressures noted early on during hospital course, improved and stable by discharge. Discharge discussed with: patient Time spent discussing smoking cessation with patient: 3 to 10 minutes - Time Spent with Patient Total time spent providing and/or coordinating discharge services: Date of admission: 06/12/18 09:35 Primary care physician: Jericho Chowdary Consults: 06/11/18 22:54 Consult to Nephrology [CONS] Routine Consulting Provider: [facility] [place]/PEDRO/JANNETH/JESICA Reason for Consult: hyponatremia na 117 Call Completed: No Discharging clinician: Janee Bates Anticipated date of discharge: 06/14/18 - Constitutional Vitals: Temp Pulse Resp BP Pulse Ox 97.8 F 68 16 147/83 94 06/14/18 06:50 06/14/18 06:50 06/14/18 06:50 06/14/18 06:50 06/14/18 06:50 Exam: General: vital signs noted, no acute distress, non-toxic appearance, Head: normocephalic, atraumatic Eyes: EOMI, PERRL, sclera anicteric ENT: moist mucous membranes Neck: supple Cardio: RRR; no murmurs, +S1/S2 Pulm: bilateral wheezing, equal chest rise, no respiratory distress Abd: soft, nontender, nondistended Neuro: AAO x3, CN II-XII grossly intact; no focal deficits, moves all extr emities spontaneously Ext: no lower extremity edema; no gross deformities Psych: cooperative, answers questions appropriately Skin: exposed skin is warm, dry, intact - Patient Status Functional capacity at discharge: independent ambulation Overall status at discharge: patient is progressing back to baseline - Diet and Activity Activity: increase activity as tolerated Diet: diabetic diet
[2018-06-14] MEDS: predniSONE 20 MG TABLET PO SCH (09:50)
--- NOTE | 2018-06-14 11:10 | Nephrology Progress Note ---
Date of Encounter: 06/14/18 Time of Encounter: 10:00 - Assessment and Plan (1) Hyponatremia Status: Acute -Patient presented at OSH with sodium of 115 with cough and shortness of breath for a few days with decreased appetite, poor oral intake -After correction and on presentation at [facility], sodium was 122 -Hyponatremia is potentially secondary low solute from poor oral intake vs. SIADH vs. pseudohyponatremia from hyperglycemia -BMP- Na 133, K 3.8, Cl 101, BUN 9, Cr 0.32, glucose 95 -CBC- WBC 9, hemoglobin 10.3, hematocrit 29.6, platelets 292 PLAN: -From nephrology stand point, patient is stable for discharge -Upon discharge, follow up with nephrology in outpatient setting. (2) Hyperglycemia Status: Acute -Patient has history of T2DM on metformin 100 mg PO BID -Glucose at OSH 336, on presentation to [facility] 418, repeat 370 -Patient denies monitoring blood glucose -Na 133 today -Glucose 95 -Hemoglobin A1c 9.7 PLAN: -Follow up with outpatient PCP regarding DM management (3) Type 2 diabetes mellitus Status: Chronic -Patient has history of T2DM treated with metformin 1000 mg PO BID -Patient reports that she does not monitor her blood glucose -On admission, glucose was 418 -Patient reports she has had a decreased appetite and has had poor oral intake r ecently -Glucose on AM labs 95 -Hemoglobin A1c 9.7 PLAN: -Hold metformin -Diabetic diet -Follow with PCP Qualifiers: Diabetes mellitus residential insulin use: without residential use Diabetes mellitus complication status: with hyperglycemia Qualified Code(s): E11.65 - Type 2 diabetes mellitus with hyperglycemia (4) Hypertension Status: Acute -Patient does not have a history of diagnosed hypertension -Maximum BP at admission- 170/69 -Most recent 147/83 PLAN: -Lopressor IVP Q6H PRN systolic BP >160 -Follow up with PCP Qualifiers: Hypertension type: essential hypertension Qualified Code(s): I10 - Essential (primary) hypertension (5) Hyperkalemia Status: Resolved Resolved. -Patient presented with potassium of 5.4 -Potassium this AM 3.8 PLAN -Continue to monitor Subjective Principal diagnosis: Multifactorial hyponatremia Interval history: Ms. Gaspar is a 47 year old female with past medical history of T2Dm treated with metformin 1000 mg PO BID who presented to OSH in [place] as she was feeling generally ill xfew days. Patient additionally reported dry, nonprodu ctive cough, decreased appetite with poor oral intake and increased shortness of breath. She denied nausea, vomiting, constipation, diarrhea, hemoptysis, headache or change in vision. At OSH, patient's Na was 115. CPatient's corrected Na was 122. Na on AM labs is 133 today. On examination, patient was sitting comfortably in bed. She reports headache, related to sinusitis. She denied chest pain, shortness of breath, LE edema, vomiting, nausea, fever, chills, constipation, diarrhea. Objective - Vital Signs Vital signs: Vital Signs Temp Pulse Resp BP Pulse Ox 06/14/18 06:50 97.8 F 68 16 147/83 94 06/14/18 03:51 16 92 06/14/18 02:53 97.4 F L 64 16 143/80 92 06/13/18 23:05 97.9 F 81 16 157/78 94 06/13/18 22:24 18 92 06/13/18 18:54 98.0 F 77 16 145/76 94 06/13/18 17:14 98.2 F 92 16 165/93 92 06/13/18 15:42 16 92 06/13/18 11:40 97.8 F 75 16 138/75 95 Intake and Output 06/13/18 06/14/18 06/14/18 23:59 07:59 15:59 Intake Total 240 / 240 0 / 0 Output Total 900 / 900 Balance -660 / -660 0 / 0 Intake: Oral 240 / 240 0 / 0 Output: Urine 900 / 900 Other: Meal Dinner Percent of Meal Consumed 100% Weight 83.2 kg 83.3 kg Blood Glucose* 323 84 Patient Weight 06/14/18 23:59 Weight 83.3 kg - General Appearance General appearance: Present: well-developed, well-nourished, appears started age EENT: Present: ATNC, mucous membranes moist, hearing intact Neck: Present: supple Respiratory: Present: clear Cardiology: Present: no murmurs, no edema, regular rate, regular rhythm, normal S1, normal S2 Gastrointestinal: Present: normoactive bowel sounds, no tenderness, no guarding Integumentary: Present: no rash, warm and dry Neurologic: Present: no focal deficit Musculoskeletal: Present: no deformities, no erythema, no clubbing Psychiatric: Present: mood/affect appropriate, cooperative - Lab 06/14/18 06:35 06/14/18 06:35 Most recent lab results Calcium 8.7 mg/dL (8.6-10.3) 06/14/18 06:35 Urine Creatinine 10 mg/dL 06/11/18 23:10 Urine Sodium 11.6 mEq/L 06/11/18 23:10 Consult Discharge Plan - Plan Additional Instructions: Follow-up appointments: If there is not an appointment listed below, please call your physician and schedule a follow-up appointment. If you have congestive heart failure and your symptoms return, make an appointment with your physician. Medication List: Carry an up to date list of medications you are taking at all time. We have given you an updated medication list including any new medications that you have been prescribed. Please provide that list to your primary provider Symptoms: If your condition changes or you experience any of the following symptoms, notify your physician immediately: Unusual or worsening pain, fever, persistent nausea and vomiting, bleeding, increase in swelling (especially in your legs), sudden weight gain, extreme dizziness, chest pain, increased drainage or redness from a wound or incision. Go to the emergency department if you experience a problem with breathing. Weights: If you have a history of swelling or shortness of breath, weigh yourself daily and notify your physician if you have a weight gain of two or more pounds in one day or 5 or more pounds in a week. If you experience any of the warning signs for stroke: Sudden numbness or weakness of the face, arm or leg; especially on one side of the body, sudden confusion, trouble speaking or understanding, sudden trouble seeing in one or both eyes, sudden trouble walking, dizziness, loss of balance or coordination, sudden sever headache with no cause; Call 911 or go to the emergency room. Stroke is a medical emergency. Some risk factors for stroke: Age, cigarette smoking, diabetes, excessive alcohol consumption, family history, high blood pressure, overweight, physical inactivity, prior stroke, heart attack, diagnosis of carotid artery stenosis or other artery disease. If you smoke, STOP: Smoking or tobacco use significantly increases your risk of heart and lung disease. Your chance of disease greatly increases if you continue to smoke. For more information, call the [employer] tobacco quit line for smoking cessation 1-323-LHLL-NOW ( ) Referrals: ColopyJericho DO [Primary Care Provider] - (Per the doctors office patient is to make his own appointment) Prescriptions: Ipratropium/Albuterol Neb [Duoneb] 3 ml IH [id number] PRN #100 inhsol PRN Reason: Wheezing Albuterol Sulfate [Albuterol Inhaler] 1 puff IH Q4H PRN #1 inhaler PRN Reason: Wheezing Nicotine Patch [Nicoderm] 14 mg TD DAILY #30 patch.td24 predniSONE [PredniSONE] 20 mg PO DAILY #3 tablet
== END 2018-06-14 10:43 | disposition home or self-care (01) | DRG 637 ==
LOC: 2NNU → SUATTDRO 22:13 → 3NENU 06-13 18:40
PROVIDERS: ADMIT Internal Medicine; ATTEND Internal Medicine

== ENCOUNTER 2019-01-12 02:00 | Inpatient (IN) ==
[2019-01-12] MEDS ORDERED: Naloxone 0.4 MG/ML INJ IVP PRN ×2 (06:44→17:44)
[2019-01-12 06:53] LABS: Basophils # 0.1 K/mcL (0.0-0.2); Basophils % 0.7 %; Eosinophils # 0.2 K/mcL (0.0-0.6); Eosinophils % 2.6 %; Hematocrit 38.7 % (35.3-44.9); Hemoglobin 13.8 g/dL (11.5-15.4); Immature Granulocytes % 0.3 % (0-4); Immature Platelets 3.7 % (1.1-6.1); Lymphocytes # 2.4 K/mcL (0.6-4.6); Lymphocytes % 35.6 %; Mean Corpuscular HGB Conc 35.7 g/dL (31.6-35.5); Mean Corpuscular Hemoglobin 30.9 pg (28.0-33.3); Mean Corpuscular Volume 86.6 fL (83.0-100.0); Monocytes # 0.5 K/mcL (0.0-1.3); Monocytes % 7.4 %; Neutrophils # 3.6 K/mcL (1.6-8.9); Platelet Count 315 K/mcL (140-400); Red Blood Count 4.47 M/mcL (3.82-4.97); Red Cell Distribution Width 12.7 % (11.5-14.5); Segmented Neutrophils % 53.4 %; White Blood Count 6.8 K/mcL (4.3-11.1)
[2019-01-12 06:56] LABS: BUN/Creatinine Ratio 8 (6-26); Blood Urea Nitrogen 3 mg/dL (6-20); Calcium 8.9 mg/dL (8.6-10.3); Carbon Dioxide 22 mEq/L (23-29); Chloride 94 mEq/L (98-107); Glucose 127 mg/dL (70-105); Osmolality,Calculated 252 (280-300); Potassium 4.3 mEq/L (3.5-5.1); Sodium 122 mEq/L (136-145); eGFR For African Americans > 60 (> 60); eGFR For Non-African Americans > 60 (> 60)
[2019-01-12 06:57] LABS: Lipase 11 Units/L (11-82)
[2019-01-12 07:09] LABS: Alanine Aminotransferase 10 Units/L (7-52); Albumin 3.9 g/dL (3.5-5.7); Albumin/Globulin Ratio 1.4 (1.1-2.2); Alkaline Phosphatase 74 Units/L (34-104); Aspartate Amino Transferase 10 Units/L (13-39); Bilirubin,Total 0.3 mg/dL (0.3-1.0); Globulin 2.7 g/dL (2.4-3.5); Total Protein 6.6 g/dL (6.4-8.9)
--- NOTE | 2019-01-12 07:17 | Internal Med History&Physical ---
Date of Encounter: 01/12/19 Time of Encounter: 04:00 Internal Medicine - H&P: HPI Chief complaint: Hyponatremia History of present illness: Ms. Ruby is a 48 year old female with a past medical history of diabetes, hypertension and COPD who initially presented to [facility] with complaints of generalized malaise associated with a metallic taste in her mouth and nausea over the past 3-4 days. Patient was found to have a sodium of 119. Her sodium was checked by her physician last Monday which and found to be 126 . Patient reports decreased food intake and daily consumption of a large amount of tea as her beverage of choice. No reports of recent changes in medication. Patient was recently started on amoxicillin for sinus infection. Patient smokes a pack and a half a day for the past 30 years. On my initial assessment, patient was hemodynamically stable. Alert oriented 3. Appeared to be dry. Physical exam was nonfocal, otherwise unremarkable. Admitted for severe hyponatremia. Past Med Surg Social Fam HX - Past Medical History Medical history: diabetes, other Additional medical history: DDD Psychiatric history: no psych history - Past Surgical History Surgical History: no surgical history Additional surgical history: Carpal tunnel RT - Social History Smoking Status: Current every day smoker Smokeless Tobacco Status: No (1 PPD) Alcohol use: none Drug use: none Internal Medicine - H&P: Meds Cetirizine HCl [Allergy Relief] 10 mg PO DAILY 01/11/19 [History] Guaifenesin [Mucinex] 600 mg PO Q12H 01/11/19 [History] Lisinopril [Zestril] 10 mg PO DAILY 01/11/19 [History] Amoxicillin/Clavulanate [Augmentin] 875 mg PO BID 01/12/19 [History] Gabapentin [Neurontin] 300 mg PO HS 01/12/19 [History] Gabapentin [Neurontin] 600 mg PO BID 01/12/19 [History] Metformin HCl 1,000 mg PO BID 01/12/19 [History] raNITIdine HCl [Zantac 75] 150 mg PO QPM 01/12/19 [History] Allergy/AdvReac Type Severity Reaction Status Date / Time No Known Allergies Allergy Verified 01/12/19 15:52 All Systems PM: A 10-system review of systems was performed and is negative for pertinent findings except as documented above in the HPI. - Constitutional Constitutional: no chills, no fever(s), no night sweats - EENT Eyes: no change in vision, no discharge, no pain, no photophobia Ears: no ear discharge, no ear pain, no tinnitus Nose, mouth and throat: no dysphagia, no nasal discharge, no neck pain, no sore throat - Cardiovascular Cardiovascular ROS IM: no chest pain, no diaphoresis, no dyspnea, no lightheadedness, no palpitations, no syncope - Respiratory Respiratory: no cough, no dyspnea, no wheezing, no excessive phlegm production - Gastrointestinal Gastrointestinal: no abdominal pain, no diarrhea, no hematemesis, no hematochezia, no melena, no nausea, no vomiting - Genitourinary Genitourinary: no change in urinary stream, no dysuria, no flank pain, no hematuria - Musculoskeletal Musculoskeletal ROS IM: no numbness, no tingling - Integumentary Integumentary IM: no rash, no unusual bruising - Neurological Neurological ROS: no confusion, no convulsions, no focal weakness, no numbness, no tingling, no tremor(s) - Hematologic/Lymphatic Hematologic/Lymphatic: no easy bruising - Constitutional Exam: General: Alert and oriented Skin:Normal color, no rash, no lesions. HEENT:EOM, pupils equal, round and reactive. Cardiovascular:Normal S1 & S2, no rubs, murmurs or gallops. No JVD. Pulse regular. Lungs:Normal breath sounds, no wheezes or crackles. Abdomen:Soft, non-tender, no rigidity. Extremities:No deformity, no edema or tenderness, no joint swelling or clubbing. Neurological:Normal cognition and motor skills. Pulses:Carotid and radial pulses normal +2. Rest of the physical exam is non contributory Internal Med - H&P Results - Labs CBC & Chem 7: 01/12/19 06:48 01/12/19 16:47 Labs: Short CBC 01/12/19 Range/Units 06:48 WBC 6.8 (4.3-11.1) K/mcL Hgb 13.8 (11.5-15.4) g/dL Hct 38.7 (35.3-44.9) % Plt Count 315 (140-400) K/mcL Neutrophils # 3.6 (1.6-8.9) K/mcL - Assessment and Plan (1) Hyponatremia Current Visit: No Status: Acute Assessment and plan: Patient presenting with severe hyponatremia of 112. Patient received fluid bolus prior to transfer with repeat sodium of 119. Review of records appears to show a chronic history of hyponatremia and was seen in June for similar presentation. Reports poor PO intake but states she drinks a large amount of tea. - BMP STAT and again in AM - urine studies urine sodium, urine creatinine urine osmolality - consult to nephrology (2) Type 2 diabetes mellitus Current Visit: No Status: Chronic Assessment and plan: Pt is a T2DM on home metformin, not on home insulin - denies compliance with daily BG monitoring - has had a decreased appetite lately Plan: - Sliding scale - hold metformin - ADA diet Qualifiers: Qualified Code(s): E11.9 - Type 2 diabetes mellitus without complications (3) COPD (chronic obstructive pulmonary disease) Current Visit: No Status: Suspected Assessment and plan: Patient reporting questionable history of COPD. No evidence of wheezing. We will monitor. Qualifiers: COPD type: unspecified COPD Qualified Code(s): J44.9 - Chronic obstructive pulmonary disease, unspecified (4) DVT prophylaxis Current Visit: No Status: Acute Assessment and plan: Subcutaneous heparin - Time Spent With Patient Total time spent is greater than 50% in coordination of care (as documented) at patient's floor/unit and/or counseling patient:
[2019-01-12] MEDS ORDERED: D5% in Water 1,000 ML IVC PRN ×3 (07:22→17:44)
[2019-01-12] MEDS ORDERED: *HR* Dextrose 50 % in Water (Syg) 50 ML SYRINGE IVP PRN ×3 (07:22→17:44)
[2019-01-12] MEDS ORDERED: Dextrose Gel 15 GM/37.5 ML TUBE PO PRN ×8 (07:22→17:44)
[2019-01-12] MEDS: Insulin LISPRO 300 UNITS/3 ML VIAL SQ SCH ×3 (08:11→16:50)
[2019-01-12] MEDS ORDERED: Nicotine 21 MG PATCH.TD24 TD SCH (09:00)
[2019-01-12] MEDS ORDERED: Isovue-370 500 ML BOTTLE IVP ONE ×2 (10:40→17:44)
[2019-01-12] MEDS ORDERED: NON-FORMULARY MEDICATION 1 EACH EACH (Cetirizine Hcl [Allergy Relief] 10 MG) PO SCH (10:45)
--- NOTE | 2019-01-12 10:48 | Event Note ---
Date of Encounter: 01/12/19 Time of Encounter: 07:30 Patient admitted early this morning in transfer from [facility] with concerns of hyponatremia. She received some IV fluids at [place]. Upon arrival here, she had repeat labs performed which revealed sodium level 122, up from 119 and 112 respectively. She feels well now and has no complaints. She states she felt weak and tired last night. She was prompted to come to ER by her PCP who ordered labs earlier yesterday from an outside lab and recommended she go the ER. I reviewed her old labs and note that she has had chronic hyponatremia on multiple repeat occasions. She does not use any diuretics. She does not drink alcohol. She is a long-time heavy smoker. Upon further history and review, she drinks excessive amount of iced tea per day, roughly 2 gallons every day. She does not drink an excessive free water. She denies any seizure history. On exam, she appears euvolemic. Urine electrolyes are pending and have not yet been collected. She is currently on amoxicillin for a partially treated sinusitis. Exam: General: NAD; euvolemic HEENT: moist mucosa; neck supple Chest: CTA B, No WRR, RRR Abdomen: soft, NT, ND, + BS, no HSMG. Ext: no CCE; no calf pain, full ROM equal pulses Neuro: A&Ox3; no focal deficits; no weakness Skin: warm and dry Labs reviewed Imp/Plan: 1. Hyponatremia: Will trend serum chemistries and monitor closely. Nephrology consulted. Avoid further IVF allow patient to eat and avoid excessive fluid intake. Will order CT Chest to rule out lung CA; recent CT showed SPN in October. 2. DM2: SSI; avoid Metformin. 3. Sinusitis: finish Amoxicillin.
[2019-01-12 11:23] LABS: Estimated Average Glucose 200 mg/dl
[2019-01-12 11:36] LABS: BUN/Creatinine Ratio 10 (6-26); Blood Urea Nitrogen 5 mg/dL (6-20); Calcium 8.8 mg/dL (8.6-10.3); Carbon Dioxide 25 mEq/L (23-29); Chloride 94 mEq/L (98-107); Glucose 147 mg/dL (70-105); Magnesium 1.5 mg/dL (1.6-2.6); Osmolality,Calculated 258 (280-300); Potassium 4.6 mEq/L (3.5-5.1); Sodium 124 mEq/L (136-145); eGFR For African Americans > 60 (> 60); eGFR For Non-African Americans > 60 (> 60)
[2019-01-12 11:41] LABS: Bilirubin,Urine Negative (Negative); Blood,Urine Trace (Negative); Clarity,Urine Clear (Clear); Color,Urine Yellow (Yellow); Glucose,Urine (UA) 250 mg/dL (Normal); Ketones,Urine Negative (Negative); Leukocyte Esterase,Urine Negative (Negative); Nitrite,Urine Negative (Negative); Protein,Urine Trace mg/dL (Neg-Trace); Specific Gravity,Urine 1.009 (1.010-1.025); Urobilinogen,Urine Normal (Normal)
[2019-01-12 11:43] LABS: Bacteria,Urine None Seen per hpf (None-Few); Hyaline Casts,Urine None Seen per lpf (None-Few); RBC,Urine 0-3 per hpf (0-3); Squamous Epithelial Cell,Urine Many per lpf (None-Few); WBC,Urine 0-3 per hpf (0-3)
--- NOTE | 2019-01-12 11:47 | Nephrology Consult Note ---
Date of Encounter: 01/12/19 Time of Encounter: 11:47 Assessment and Plan (1) Hyponatremia Current Visit: No Status: Resolved Patient with low serum sodium likely from polydipsia and nausea. Patient also has chronic diarrhea which could also lead to fluid losses. Her sodium is correcting to an initial bolus of saline and is likely now autocorrecting. Recommend adding D5 to slow the rate of rise of her serum sodium. Start with D5@75/hr x 500ml. Closely follow serum sodium. Patient is currently asymptomatic. Unsure of the etiology of the metalic taste, but her constellation of presenting symptoms could have been neurologic manifestation of hyponatremia. Fortunately they have resolved. (2) Hypertension Current Visit: No Status: Resolved Titrate blood pressure medications as needed. Qualifiers: Hypertension type: essential hypertension Qualified Code(s): I10 - Essential (primary) hypertension History of Present Illness - Reason for Consult Consult date: 01/12/19 hyponatremia - Chief Complaint hyponatremia - History of Present Illness is a 48 yo woman with a history of hyponatremia who presents with several days of nausea and metalic taste in her mouth. She was found to have a low serum sodium by valet cashier and sent to the emergency room where her sodium had dropped even further. The patient has chronic diarrhea. She reports that she had a similar episode in June 2018 that was associated with nausea as well. The patient reports that she had nausea and not feeling well initially and then later had a metallic taste to her mouth since that she did not want to eat or drink. At the time my evaluation she reports that she feels better and that her symptoms are resolved. The patient admits to drinking about 2 gallons of tea a day. She denies chest pain, shortness of breath or vomiting. Past Med Surg Social Fam HX - Past Medical History Medical history: diabetes, other Additional medical history: DDD Psychiatric history: no psych history - Past Surgical History Surgical History: cholecystectomy Additional surgical history: Carpal tunnel RT - Social History Smoking Status: Current every day smoker Smokeless Tobacco Status: No (1 PPD) Alcohol use: none Drug use: none Medications and Allergies Cetirizine HCl [Allergy Relief] 10 mg PO DAILY 01/11/19 [History] Guaifenesin [Mucinex] 600 mg PO Q12H 01/11/19 [History] Lisinopril [Zestril] 10 mg PO DAILY 01/11/19 [History] Amoxicillin/Clavulanate [Augmentin] 875 mg PO BID 01/12/19 [History] Gabapentin [Neurontin] 300 mg PO HS 01/12/19 [History] Gabapentin [Neurontin] 600 mg PO BID 01/12/19 [History] Metformin HCl 1,000 mg PO BID 01/12/19 [History] raNITIdine HCl [Zantac 75] 150 mg PO QPM 01/12/19 [History] Allergy/AdvReac Type Severity Reaction Status Date / Time No Known Allergies Allergy Verified 01/12/19 15:52 Review of Systems All Systems: reviewed and no additional remarkable complaints except as stated (As documented in the history of present illness) Exam - Vital Signs Vital signs: Initial Vital Signs Temp Pulse Resp BP Pulse Ox 97.7 F 64 16 148/74 97 01/12/19 08:02 01/12/19 08:02 01/12/19 08:02 01/12/19 08:02 01/12/19 08:02 Vital Signs - Last 8 Hours Temp Pulse Resp BP Pulse Ox 01/12/19 11:41 97.4 F L 63 16 156/83 97 01/12/19 10:00 65 20 152/67 98 01/12/19 09:00 72 16 144/107 97 01/12/19 08:34 97.7 F 01/12/19 08:02 97.7 F 71 16 148/74 97 Intake and Output 01/11/19 01/12/19 01/12/19 23:59 07:59 15:59 Other: Weight 79.095 kg Blood Glucose* 131 Patient Weight 01/12/19 23:59 Weight 79.095 kg - General Appearance General appearance: well-developed, well-nourished EENT: ATNC Neck: supple Respiratory: course breath sounds Cardiology: no edema, regular rate Gastrointestinal: no tenderness, obese Integumentary: warm and dry Neurologic: alert and oriented x3 Musculoskeletal: no cyanosis Psychiatric: mood/affect appropriate Results - Lab Results 01/12/19 06:48 01/12/19 16:47 Most recent lab results 01/12/19 01/12/19 01/12/19 06:48 11:05 11:20 Calcium 8.9 8.8 Magnesium 1.5 L Urine Sodium 45.0
[2019-01-12] MEDS ORDERED: Gabapentin 300 MG CAPSULE PO SCH ×2 (12:00→21:00)
[2019-01-12] MEDS ORDERED: Acetaminophen 325 MG TABLET PO PRN ×2 (12:54→17:44)
[2019-01-12] MEDS ORDERED: *HR* HYDROcodone/Acet 5/325 mg TABLET PO PRN ×2 (12:57→17:44)
[2019-01-12] MEDS ORDERED: D5% in Water 500 ML IVC SCH ×2 (13:15→17:44)
[2019-01-12] MEDS ORDERED: *HR* Heparin 5,000 UNIT/ML VIAL SQ SCH (14:00)
[2019-01-12 17:26] LABS: BUN/Creatinine Ratio 17 (6-26); Blood Urea Nitrogen 9 mg/dL (6-20); Calcium 8.8 mg/dL (8.6-10.3); Carbon Dioxide 24 mEq/L (23-29); Chloride 94 mEq/L (98-107); Glucose 209 mg/dL (70-105); Magnesium 1.6 mg/dL (1.6-2.6); Osmolality,Calculated 263 (280-300); Sodium 124 mEq/L (136-145); eGFR For African Americans > 60 (> 60); eGFR For Non-African Americans > 60 (> 60)
[2019-01-12] MEDS: *HR* Heparin 5,000 UNIT/ML VIAL SQ SCH (21:23)
[2019-01-12] MEDS: Gabapentin 300 MG CAPSULE PO SCH (21:24)
[2019-01-13 00:01] LABS: BUN/Creatinine Ratio 24 (6-26); Blood Urea Nitrogen 14 mg/dL (6-20); Calcium 8.8 mg/dL (8.6-10.3); Carbon Dioxide 25 mEq/L (23-29); Chloride 99 mEq/L (98-107); Glucose 131 mg/dL (70-105); Magnesium 1.8 mg/dL (1.6-2.6); Osmolality,Calculated 270 (280-300); Potassium 4.3 mEq/L (3.5-5.1); Sodium 129 mEq/L (136-145); eGFR For African Americans > 60 (> 60); eGFR For Non-African Americans > 60 (> 60)
[2019-01-13 05:59] LABS: BUN/Creatinine Ratio 24 (6-26); Blood Urea Nitrogen 11 mg/dL (6-20); Calcium 9.3 mg/dL (8.6-10.3); Carbon Dioxide 21 mEq/L (23-29); Chloride 103 mEq/L (98-107); Glucose 155 mg/dL (70-105); Magnesium 1.7 mg/dL (1.6-2.6); Osmolality,Calculated 275 (280-300); Potassium 4.5 mEq/L (3.5-5.1); Sodium 131 mEq/L (136-145); eGFR For African Americans > 60 (> 60); eGFR For Non-African Americans > 60 (> 60)
[2019-01-13] MEDS: *HR* Heparin 5,000 UNIT/ML VIAL SQ SCH ×3 (06:47→21:43)
[2019-01-13] MEDS ORDERED: Loratadine 10 MG TABLET PO SCH (09:00)
[2019-01-13] MEDS: Nicotine 21 MG PATCH.TD24 TD SCH (09:02)
[2019-01-13] MEDS: Loratadine 10 MG TABLET PO SCH (09:02)
[2019-01-13] MEDS: Gabapentin 300 MG CAPSULE PO SCH ×3 (09:02→21:43)
[2019-01-13] MEDS: Insulin LISPRO 300 UNITS/3 ML VIAL SQ SCH ×3 (09:03→17:04)
--- NOTE | 2019-01-13 09:49 | Nephrology Progress Note ---
Date of Encounter: 01/13/19 Time of Encounter: 09:49 - Assessment and Plan (1) Hyponatremia Current Visit: No Status: Resolved Patient with low serum sodium likely from polydipsia and nausea. Patient also has chronic diarrhea which could also lead to fluid losses. Her sodium is correcting to an initial bolus of saline and is likely now autocorrecting. Recommend adding D5 to slow the rate of rise of her serum sodium. Closely follow serum sodium. Patient is currently asymptomatic. Unsure of the etiology of the metalic taste, but her constellation of presenting symptoms could have been neurologic manifestation of hyponatremia. Fortunately they have resolved. (2) Hypertension Current Visit: No Status: Resolved Qualifiers: Hypertension type: essential hypertension Qualified Code(s): I10 - Essentia l (primary) hypertension Subjective Principal diagnosis: hyponatremia Interval history: The patient was seen. She is asleep. No new reports. Objective - Vital Signs Vital signs: Vital Signs Temp Pulse Resp BP Pulse Ox 01/13/19 07:48 97.9 F 64 14 136/59 97 01/13/19 02:54 98 F 68 16 115/77 97 01/12/19 23:19 98.3 F 64 16 114/62 98 01/12/19 21:30 98 01/12/19 18:58 98.2 F 71 16 151/76 98 01/12/19 17:00 80 18 130/84 94 01/12/19 16:14 97.1 F L 01/12/19 15:00 72 20 162/79 95 01/12/19 14:00 159/73 01/12/19 12:00 63 14 189/74 96 01/12/19 11:41 97.4 F L 63 16 156/83 97 01/12/19 10:00 65 20 152/67 98 Intake and Output 01/12/19 01/13/19 01/13/19 23:59 07:59 15:59 Intake Total 860 / 1220 Output Total 0 / 100 Balance 860 / 1120 Intake: IV Fluids 500 / 500 Dextrose 5% 500 ML @ 75 mls/hr 500 / 500 IVC .[id number] ESNA Rx#:[id number] Oral 360 / 720 Output: Urine 0 / 100 Other: Meal Dinner Percent of Meal Consumed 100% # Voids 1 Weight 80.2 kg Blood Glucose* 138 149 Patient Weight 01/13/19 23:59 Weight 80.2 kg - General Appearance General appearance: Present: well-developed, well-nourished EENT: Present: ATNC Neck: Present: supple Cardiology: Present: regular rate - Lab 01/12/19 06:48 01/13/19 07:58 Most recent lab results 01/12/19 01/13/19 23:13 05:21 Calcium 8.8 9.3 Magnesium 1.8 1.7
[2019-01-13 11:40] LABS: BUN/Creatinine Ratio 18 (6-26); Blood Urea Nitrogen 11 mg/dL (6-20); Calcium 9.5 mg/dL (8.6-10.3); Carbon Dioxide 26 mEq/L (23-29); Chloride 101 mEq/L (98-107); Glucose 122 mg/dL (70-105); Magnesium 1.8 mg/dL (1.6-2.6); Osmolality,Calculated 271 (280-300); Potassium 5.1 mEq/L (3.5-5.1); Sodium 130 mEq/L (136-145); eGFR For African Americans > 60 (> 60); eGFR For Non-African Americans > 60 (> 60)
--- NOTE | 2019-01-13 13:33 | Internal Med Progress Note ---
Hospitalist Progress Note - Encounter Date of Encounter: 01/13/19 Time of Encounter: 10:15 - Subjective Interval History: Ms Ruby was initially requesting discharge upon further deliberations and education about her current status of hyponatremia she is agreeable to stay for the next 24 hours for continued close monitoring of her sodium and neurochecks. She does admit to having prior hospitalization for hyponatremia. According to her medical records patient had critical sodium level of 115-117. GEN: Denies fever, chills or malaise HEENT: Denies headache blurriness, or dysphagia RESP: Denies SOB or cough CV: Denies chest pain or palpitations GI: Denies Nausea, vomiting, diarrhea or constipation Reviewed current in hospital medications with modifications see orders Reviewed Routine labs - Exam Vitals: Temp Pulse Resp BP Pulse Ox 97.9 F 63 17 136/82 99 01/13/19 11:32 01/13/19 11:32 01/13/19 11:32 01/13/19 11:32 01/13/19 11:32 Exam: GEN: NAD, A&O x 3, Pleasant and conversant SKIN: [place] warm acyanotic not jaundice HEART: RRR, no murmurs LUNGS: CTA no wheeze or crackles, overall non labored ABDOMEN; Soft, non tender or distended, BS x 4 normactive EXT: No LE edema, Pedal pulses 1+, radial pulses 2+ PSYCH: Mood and affect is appropriate Neuro: CN II- XII grossly intact as examined, no cerebellar dysmetria or ataxia - Assessment and Plan (1) Hyponatremia Current Visit: Yes Status: Acute Assessment and Plan: Patient presenting with severe hyponatremia of 112. Patient received fluid bolus prior to transfer with repeat sodium of 119. Review of records appears to show a chronic history of hyponatremia and was seen in June for similar presentation. Reports poor PO intake but states she drinks a large amount of tea. Na 122 at 0648 on 01/12, 131 at 0521 was treated with D5w, repeat sodium so far 131-130. We will check every 4 for 24 hours and then discontinue. We will continue neuro checks for 24 hours. Patient initially reluctant to stay up on education of possible sequela of events she is agreeable to spend 24 hours to be evaluated. Of note this is true hyponatremia her glucose is within normal limits we will check a lipid in the morning. Upon review of patient's medication she is on high-dose gabapentin and likely the underlying reason for her chronic hyponatremia dating back to 2016 with sodium levels ranging from 121-134 but mostly in the 120s (2) Type 2 diabetes mellitus Current Visit: Yes Status: Chronic Assessment and Plan: A1c 8.6 indicative of poor control she is only on metformin would benefit from addition of another medication upon discharge for now insulin per protocol (3) COPD (chronic obstructive pulmonary disease) Current Visit: No Status: Suspected Assessment and Plan: DuoNeb as needed (4) DVT prophylaxis Current Visit: No Status: Acute Assessment and Plan: heparin sq - Time Spent with Patient Total time spent is greater than 50% in coordination of care (as documented) at patient's floor/unit and/or counseling patient: Internal Medicine: Result - Labs CBC & Chem 7: 01/12/19 06:48 01/13/19 11:11 Labs: BMP 01/12/19 01/12/19 01/13/19 16:47 23:13 05:21 Sodium 124 L 129 L 131 L Potassium 4.0 4.3 4.5 Chloride 94 L 99 103 Carbon Dioxide 24 25 21 L BUN 9 14 11 Creatinine 0.53 L 0.58 L 0.45 L Glucose 209 H 131 H 155 H Calcium 8.8 8.8 9.3 01/13/19 01/13/19 07:58 11:11 Sodium 131 L 130 L Potassium 5.1 Chloride 101 Carbon Dioxide 26 BUN 11 Creatinine 0.60 Glucose 122 H Calcium 9.5 - Impressions Impressions Chest CT 01/12/19 20:40 IMPRESSION: Scattered bilateral mosaic ground-glass pattern is grossly similar to prior, of uncertain clinical significance, which may reflect residual inflammation or air trapping related to airways disease. Small pulmonary nodules are not significantly changed as compared to prior, measuring up to approximately 5 mm. See below for follow-up recommendations. RECOMMENDATIONS: Fleischner Society guidelines for follow-up and management of incidentally detected pulmonary nodules: Single Solid Nodule: Nodule size less than 6 mm In a low-risk patient, no routine follow-up. In a high-risk patient, optional CT at 12 months. Nodule size equals 6-8 mm In a low-risk patient, CT at 6-12 months, then consider CT at 18-24 months. In a high-risk patient, CT at 6-12 months, then CT at 18-24 months. Nodule size greater than 8 mm In a low-risk patient, consider CT at 3 months, PET/CT, or tissue sampling. In a high-risk patient, consider CT at 3 months, PET/CT, or tissue sampling. Multiple Solid Nodules: Nodule size less than 6 mm In a low-risk patient, no routine follow-up. In a high-risk patient, optional CT at 12 months. Nodule size equals 6-8 mm In a low-risk patient, CT at 3-6 months, then consider CT at 18-24 months. In a high-risk patient, CT at 3-6 months, then CT at 18-24 months. Nodule size greater than 8 mm In a low-risk patient, CT at 3-6 months, then consider CT at 18-24 months. In a high-risk patient, CT at 3-6 months, then CT at 18-24 months. - Low risk patients include individuals with minimal or absent history of smoking and other known risk factors. - High risk patients include individuals with a history or smoking or known risk factors. Radiology 2017 http://pubs.rsna.org/doi/full/10.1148/radiol.[email or web address] D/ / Conner Moreno MD / Conner Moreno MD Interpreting Provider: Conner Moreno MD (2) Type 2 diabetes mellitus Qualifiers: Diabetes mellitus shelter insulin use: without exterminator helper termite use Diabetes mellitus complication status: without complication Qualified Code(s): E11.9 - Type 2 diabetes mellitus without complications (3) COPD (chronic obstructive pulmonary disease) Qualifiers: COPD type: unspecified COPD Qualified Code(s): J44.9 - Chronic obstructive pulmonary disease, unspecified
[2019-01-13] MEDS ORDERED: Ipratropium/Albuterol Neb 3 ML IH PRN (13:45)
[2019-01-13] MEDS ORDERED: Famotidine 20 MG TABLET PO SCH (18:00)
[2019-01-14 03:22] LABS: Basophils # 0.1 K/mcL (0.0-0.2); Basophils % 0.7 %; Eosinophils # 0.2 K/mcL (0.0-0.6); Eosinophils % 3.2 %; Hematocrit 36.8 % (35.3-44.9); Hemoglobin 12.5 g/dL (11.5-15.4); Immature Granulocytes % 0.3 % (0-4); Lymphocytes # 2.5 K/mcL (0.6-4.6); Lymphocytes % 35.3 %; Mean Corpuscular Hemoglobin 30.3 pg (28.0-33.3); Mean Corpuscular Volume 89.3 fL (83.0-100.0); Mean Platelet Volume 9.6 fL (9.4-12.4); Monocytes # 0.5 K/mcL (0.0-1.3); Monocytes % 6.5 %; Neutrophils # 3.9 K/mcL (1.6-8.9); Platelet Count 279 K/mcL (140-400); Red Blood Count 4.12 M/mcL (3.82-4.97); White Blood Count 7.1 K/mcL (4.3-11.1)
[2019-01-14 03:48] LABS: BUN/Creatinine Ratio 31 (6-26); Blood Urea Nitrogen 16 mg/dL (6-20); Calcium 9.1 mg/dL (8.6-10.3); Carbon Dioxide 25 mEq/L (23-29); Chloride 99 mEq/L (98-107); Glucose 201 mg/dL (70-105); Magnesium 1.7 mg/dL (1.6-2.6); Osmolality,Calculated 279 (280-300); Potassium 4.1 mEq/L (3.5-5.1); Sodium 131 mEq/L (136-145); eGFR For African Americans > 60 (> 60); eGFR For Non-African Americans > 60 (> 60)
[2019-01-14] MEDS: *HR* Heparin 5,000 UNIT/ML VIAL SQ SCH (05:36)
[2019-01-14 06:50] VITALS: BP 153/79
--- NOTE | 2019-01-14 09:12 | Discharge Summary ---
- NOTES TO OUTPATIENT PROVIDER Notes to Outpatient Provider: Post hospital discharge on acute on chronic hyponatremia. Patient will be placed on a 2 L fluid restriction Date of Encounter: 01/14/19 Time of Encounter: 08:00 - Discharge Diagnosis (1) Hyponatremia Priority: Primary Status: Acute Assessment and Plan: Patient presenting with severe hyponatremia of 112. Patient received fluid bolus prior to transfer with repeat sodium of 119. Review of records appears to show a chronic history of hyponatremia and was seen in June for similar presentation. Reports poor PO intake but states she drinks a large amount of tea. Na 122 at 0648 on 01/12, 131 at 0521 was treated with D5w, repeat sodium so far 131-130. We will check every 4 for 24 hours and then discontinue. We will continue neuro checks for 24 hours. Patient initially reluctant to stay up on education of possible sequela of events she is agreeable to spend 24 hours to be evaluated. Of note this is true hyponatremia her glucose is within normal limits Upon review of patient's medication she is on high-dose gabapentin and likely the underlying reason for her chronic hyponatremia dating back to 2016 with sodium levels ranging from 121-134 but mostly in the 120s. Discussed with patient that whenever she increase her intravascular volume body reacts by losing extra water by dumping sodium in her current low-dose sodium states this puts her at critical low sodium levels. Discussed with patient about reducing her gabapentin from 600 twice a day and 300 at bedtime to just 300 3 times a day and add Cymbalta (2) Type 2 diabetes mellitus Priority: Primary Status: Chronic Assessment and Plan: A1c 8.6 indicative of poor control she is only on metformin would benefit from addition of another medication upon discharge would add Januvia insulin therapy she may benefit from insulin therapy in the COMING months if her a1c does not improve Qualifiers: Diabetes mellitus care home insulin use: without care home use Diabetes mellitus complication status: without complication Qualified Code(s): E11.9 - Type 2 diabetes mellitus without complications (3) COPD (chronic obstructive pulmonary disease) Priority: Secondary Status: Suspected Assessment and Plan: DuoNeb as needed Qualifiers: COPD type: unspecified COPD Qualified Code(s): J44.9 - Chronic obstructive pulmonary disease, unspecified (4) DVT prophylaxis Priority: Secondary Status: Acute Assessment and Plan: heparin sq discharge today Hospital course: Ms. Ruby is a 48 year old female Patient presenting with severe hyponatremia of 112. Patient received fluid bolus prior to transfer with repeat sodium of 119. Review of records appears to show a chronic history of hyponatremia and was seen in June for similar presentation. Reports poor PO intake but states she drinks a large amount of tea. Na 122 at 0648 on 01/12, 131 at 0521 was treated with D5w, repeat sodium so far 131-130. We will check every 4 for 24 hours and then discontinue. We will continue neuro checks for 24 hours. Patient initially reluctant to stay up on education of possible sequela of [place] nts she is agreeable to spend 24 hours to be evaluated. Of note this is true hyponatremia her glucose is within normal limits Upon review of patient's medication she is on high-dose gabapentin and likely the underlying reason for her chronic hyponatremia dating back to 2015 with sodium levels ranging from 121-134 but mostly in the 120s. Discussed with patient that whenever she increase her intravascular volume body reacts by losing extra water by dumping sodium in her current low-dose sodium states this puts her at critical low sodium levels. Discussed with patient about reducing her gabapentin from 600 twice a day and 300 at bedtime to just 300 3 times a day and add Cymbalta. She will be placed on 2 L fluid restriction was strongly encouraged to avoid excessive fluid intake. She does admits to polydipsia which patient was told was secondary to her uncontrolled diabetes. We will add Januvia to her current metformin dose given at A1c is 8.6 she will need outpatient follow-up Time spent discussing smoking cessation with patient: more than 10 minutes (Discharge on nicotine patches) - Time Spent with Patient Total time spent providing and/or coordinating discharge services:35 mins - Discharge Medications Prescriptions: New DULoxetine [Cymbalta] 30 mg PO DAILY #30 capsule. Sitagliptin Phosphate [Januvia] 50 mg PO DAILY #30 tab Nicotine Patch [Nicoderm] 21 mg TD DAILY #30 patch.td24 Continued Metformin HCl 1,000 mg PO BID raNITIdine HCl [Zantac 75] 150 mg PO QPM Lisinopril [Zestril] 10 mg PO DAILY Guaifenesin [Mucinex] 600 mg PO Q12H Cetirizine HCl [Allergy Relief] 10 mg PO DAILY Changed Gabapentin [Neurontin] 300 mg PO TID 30 Days #90 Discontinued Gabapentin [Neurontin] 600 mg PO BID Amoxicillin/Clavulanate [Augmentin] 875 mg PO BID Home Medications: Cetirizine HCl [Allergy Relief] 10 mg PO DAILY 01/11/19 [History] Guaifenesin [Mucinex] 600 mg PO Q12H 01/11/19 [History] Lisinopril [Zestril] 10 mg PO DAILY 01/11/19 [History] Metformin HCl 1,000 mg PO BID 01/12/19 [History] raNITIdine HCl [Zantac 75] 150 mg PO QPM 01/12/19 [History] DULoxetine [Cymbalta] 30 mg PO DAILY #30 capsule. 01/14/19 [Rx] Gabapentin [Neurontin] 300 mg PO TID 30 Days #90 01/14/19 [Rx] Nicotine Patch [Nicoderm] 21 mg TD DAILY #30 patch.td24 01/14/19 [Rx] Sitagliptin Phosphate [Januvia] 50 mg PO DAILY #30 tab 01/14/19 [Rx] Allergies/Adverse Reactions: Allergy/AdvReac Type Severity Reaction Status Date / Time No Known Allergies Allergy Verified 01/12/19 15:52 Date of admission: 01/12/19 02:00 Consults: 01/12/19 06:51 Consult to Nephrology [CONS] Routine Consulting Provider: Kidney Brittany/PEDRO/JANNETH/JESICA Reason for Consult: Severe hyponatremia Call Completed: No Discharging clinician: Kinza Ferrer Anticipated date of discharge: 01/14/19 - Constitutional Vitals: Temp Pulse Resp BP Pulse Ox 97.6 F 69 16 153/79 98 01/14/19 06:48 01/14/19 06:48 01/14/19 06:48 01/14/19 06:48 01/14/19 06:48 Exam: GEN: NAD, A&O x 3, Pleasant and conversant SKIN: [place] warm acyanotic not jaundice HEART: RRR, no murmurs LUNGS: CTA no wheeze or crackles, overall non labored ABDOMEN; Soft, non tender or distended, BS x 4 normactive EXT: No LE edema, Pedal pulses 1+, radial pulses 2+ PSYCH: Mood and affect is appropriate Neuro: Cranial nerve II through XII grossly intact as examined no cerebellar dysmetria muscle strength testing 4-5 right upper and lower extremities, 3 out of 5 left upper and lower stable and chronic - Patient Status Disposition: Home, Self-Care Condition: Good Functional capacity at discharge: independent ambulation Overall status at discharge: patient is back to baseline - Discharge Instructions Follow Up With: Jericho Chowdary DO [Non-Partnered Physician] - (Patient has to call for an ap pt. per [facility] D/T not showing up) - Diet and Activity Activity: increase activity as tolerated, resume usual activities as tolerated Diet: diabetic diet, low fat, low cholesterol, low salt diet, other (2 litres fluid restriction)
--- NOTE | 2019-01-14 10:00 | Nephrology Progress Note ---
Date of Encounter: 01/14/19 Time of Encounter: 09:58 - Assessment and Plan (1) Hyponatremia Current Visit: No Status: Resolved Patient with low serum sodium likely from polydipsia and nausea. Patient also has chronic diarrhea which could also lead to fluid losses. Patient's serum sodium appears to be stable. She should continue to correct if she limits her free water intake. Patient is currently asymptomatic. She can follow-up with her primary intensive care specialist and if needed she will follow- up with nephrology in 2-4 months. (2) Hypertension Current Visit: No Status: Resolved Qualifiers: Hypertension type: essential hypertension Qualified Code(s): I10 - Essential (primary) hypertension Subjective Principal diagnosis: hyponatremia Interval history: The patient was seen. No new reports. She is sitting in a chair anticipating going home. Objective - Vital Signs Vital signs: Vital Signs Temp Pulse Resp BP Pulse Ox 01/14/19 06:48 97.6 F 69 16 153/79 98 01/14/19 03:54 97.6 F 68 17 121/66 96 01/13/19 23:50 97.9 F 69 17 137/79 97 01/13/19 22:34 95 01/13/19 19:54 97.9 F 67 16 131/77 95 01/13/19 16:40 97.8 F 74 15 126/84 98 01/13/19 11:32 97.9 F 63 17 136/82 99 Intake and Output 01/13/19 01/14/19 01/14/19 23:59 07:59 15:59 Intake Total 400 / 1000 600 / 1000 Balance 400 / 1000 600 / 1000 Intake: Oral 400 / 1000 600 / 1000 Other: Meal Breakfast Percent of Meal Consumed 100% # Voids 2 1 Weight 81.2 kg Blood Glucose* 123 211 Patient Weight 01/14/19 23:59 Weight 81.2 kg - General Appearance General appearance: Present: well-developed, well-nourished EENT: Present: ATNC Neck: Present: supple Neurologic: Present: alert and oriented x3 Psychiatric: Present: mood/affect appropriate - Lab 01/14/19 02:30 01/14/19 07:06 Most recent lab results 01/14/19 02:30 Calcium 9.1 Magnesium 1.7 Consult Discharge Plan - Plan Referrals: Jericho Chowdary DO [Primary Care Provider] - (Patient has to call for an appt. per [facility] D/T not showing up) Prescriptions: DULoxetine [Cymbalta] 30 mg PO DAILY #30 capsule.dr Transmission Status: Received by [facility] Sitagliptin Phosphate [Januvia] 50 mg PO DAILY #30 tab Transmission Status: Received by [facility] Gabapentin [Neurontin] 300 mg PO TID 30 Days #90 Prescription Printed Nicotine Patch [Nicoderm] 21 mg TD DAILY #30 patch.td24 Transmission Status: Received by [facility]
[2019-01-14] MEDS: Loratadine 10 MG TABLET PO SCH (10:11)
[2019-01-14] MEDS: Nicotine 21 MG PATCH.TD24 TD SCH (10:11)
[2019-01-14] MEDS: Gabapentin 300 MG CAPSULE PO SCH (10:11)
[2019-01-14] MEDS: Insulin LISPRO 300 UNITS/3 ML VIAL SQ SCH (10:13)
[2019-01-14] MEDS ORDERED: FLU Vac QV 19-20 (6Month+)/PF 0.5 ML SYRINGE IM ONE (10:42)
== END 2019-01-14 11:01 | disposition home or self-care (01) | DRG 426 ==
LOC: ICNU → SUATTDRO 02:00 → OBSVTOIN 06:25 → 2ANU 18:28
PROVIDERS: ADMIT Internal Medicine; ATTEND Pharmacist

== ENCOUNTER 2019-07-05 20:33 | Inpatient (IN) ==
[2019-07-05] MEDS ORDERED: Naloxone 0.4 MG/ML INJ IVP PRN (22:54)
[2019-07-05] MEDS ORDERED: D5% in Water 1,000 ML IVC PRN (22:55)
[2019-07-05] MEDS ORDERED: *HR* Dextrose 50 % in Water (Syg) 50 ML SYRINGE IVP PRN (22:55)
[2019-07-05] MEDS ORDERED: Dextrose Gel 15 GM/37.5 ML TUBE PO PRN ×2 (22:55)
[2019-07-06] MEDS: Nicotine 21 MG PATCH.TD24 TD SCH ×2 (00:09→09:09)
[2019-07-06] MEDS: Insulin LISPRO 300 UNITS/3 ML VIAL SQ SCH ×4 (00:11→18:03)
[2019-07-06 00:26] LABS: BUN/Creatinine Ratio 17 (6-26); Blood Urea Nitrogen 6 mg/dL (6-20); Calcium 8.9 mg/dL (8.6-10.3); Carbon Dioxide 21 mEq/L (23-29); Chloride 90 mEq/L (98-107); Glucose 126 mg/dL (70-105); Osmolality,Calculated 245 (280-300); Potassium 4.5 mEq/L (3.5-5.1); Sodium 118 mEq/L (136-145); eGFR For African Americans > 60 (> 60); eGFR For Non-African Americans > 60 (> 60)
[2019-07-06] MEDS: D5% in Water 500 ML IVC SCH ×2 (00:55→04:48)
[2019-07-06] MEDS ORDERED: Albuterol 2.5 MG/3 ML NEBULIZER IH PRN (03:01)
[2019-07-06] MEDS: *HR* Heparin 5,000 UNIT/ML VIAL SQ SCH ×2 (05:13→18:02)
[2019-07-06 05:37] LABS: Hematocrit 36.1 % (35.3-44.9); Hemoglobin 12.6 g/dL (11.5-15.4); Mean Corpuscular HGB Conc 34.9 g/dL (31.6-35.5); Mean Corpuscular Hemoglobin 30.1 pg (28.0-33.3); Mean Corpuscular Volume 86.4 fL (83.0-100.0); Mean Platelet Volume 9.1 fL (9.4-12.4); Platelet Count 298 K/mcL (140-400); Red Blood Count 4.18 M/mcL (3.82-4.97); Red Cell Distribution Width 12.9 % (11.5-14.5); White Blood Count 7.5 K/mcL (4.3-11.1)
[2019-07-06 08:22] LABS: Alanine Aminotransferase 20 Units/L (7-52); Albumin 3.8 g/dL (3.5-5.7); Albumin/Globulin Ratio 1.5 (1.1-2.2); Alkaline Phosphatase 87 Units/L (34-104); Aspartate Amino Transferase 13 Units/L (13-39); BUN/Creatinine Ratio 13 (6-26); Bilirubin,Total 0.4 mg/dL (0.3-1.0); Blood Urea Nitrogen 5 mg/dL (6-20); Calcium 8.8 mg/dL (8.6-10.3); Carbon Dioxide 24 mEq/L (23-29); Chloride 91 mEq/L (98-107); Globulin 2.6 g/dL (2.4-3.5); Glucose 218 mg/dL (70-105); Magnesium 1.2 mg/dL (1.6-2.6); Osmolality,Calculated 260 (280-300); Phosphorous 3.7 mg/dL (2.7-4.5); Potassium 4.1 mEq/L (3.5-5.1); Sodium 123 mEq/L (136-145); Total Protein 6.4 g/dL (6.4-8.9); eGFR For African Americans > 60 (> 60); eGFR For Non-African Americans > 60 (> 60)
[2019-07-06] MEDS: Gabapentin 300 MG CAPSULE PO SCH ×3 (09:09→20:39)
[2019-07-06] MEDS: Acetaminophen 325 MG TABLET PO PRN ×2 (09:25→18:06)
[2019-07-06] MEDS: Budesonide/Formoterol 160/4.5 1 PUFF INH IH SCH ×2 (09:27→20:11)
[2019-07-06 09:52] LABS: Bilirubin,Urine Negative (Negative); Blood,Urine Negative (Negative); Clarity,Urine Clear (Clear); Color,Urine Yellow (Yellow); Glucose,Urine (UA) Normal (Normal); Ketones,Urine Negative (Negative); Leukocyte Esterase,Urine Negative (Negative); Nitrite,Urine Negative (Negative); Protein,Urine 30 mg/dL (Neg-Trace); Specific Gravity,Urine 1.006 (1.010-1.025); Urobilinogen,Urine Normal (Normal)
[2019-07-06 09:54] LABS: Bacteria,Urine None Seen per hpf (None-Few); Hyaline Casts,Urine None Seen per lpf (None-Few); RBC,Urine 0-3 per hpf (0-3); Squamous Epithelial Cell,Urine Many per lpf (None-Few); WBC,Urine 0-3 per hpf (0-3)
[2019-07-06] MEDS: D5% in Water 1,000 ML IVC SCH ×4 (11:10→21:19)
[2019-07-06] MEDS ORDERED: Ibuprofen 600 MG TABLET PO ONE (20:08)
[2019-07-07] MEDS: Insulin LISPRO 300 UNITS/3 ML VIAL SQ SCH ×4 (00:23→16:51)
[2019-07-07 01:25] LABS: BUN/Creatinine Ratio 14 (6-26); Blood Urea Nitrogen 8 mg/dL (6-20); Calcium 8.2 mg/dL (8.6-10.3); Carbon Dioxide 24 mEq/L (23-29); Chloride 89 mEq/L (98-107); Glucose 378 mg/dL (70-105); Osmolality,Calculated 258 (280-300); Potassium 3.7 mEq/L (3.5-5.1); Sodium 117 mEq/L (136-145); eGFR For African Americans > 60 (> 60); eGFR For Non-African Americans > 60 (> 60)
[2019-07-07] MEDS: *HR* Heparin 5,000 UNIT/ML VIAL SQ SCH ×2 (06:12→16:51)
[2019-07-07] MEDS: Budesonide/Formoterol 160/4.5 1 PUFF INH IH SCH ×2 (07:47→19:53)
[2019-07-07] MEDS: Nicotine 21 MG PATCH.TD24 TD SCH (09:31)
[2019-07-07] MEDS: Gabapentin 300 MG CAPSULE PO SCH ×3 (09:32→20:18)
[2019-07-07] MEDS ORDERED: Insulin LISPRO 300 UNITS/3 ML VIAL SQ SCH (21:00)
[2019-07-08 02:12] LABS: BUN/Creatinine Ratio 31 (6-26); Blood Urea Nitrogen 17 mg/dL (6-20); Calcium 9.3 mg/dL (8.6-10.3); Carbon Dioxide 25 mEq/L (23-29); Chloride 96 mEq/L (98-107); Glucose 248 mg/dL (70-105); Osmolality,Calculated 272 (280-300); Potassium 4.3 mEq/L (3.5-5.1); Sodium 126 mEq/L (136-145); eGFR For African Americans > 60 (> 60); eGFR For Non-African Americans > 60 (> 60)
[2019-07-08] MEDS: *HR* Heparin 5,000 UNIT/ML VIAL SQ SCH (05:40)
[2019-07-08] MEDS: Budesonide/Formoterol 160/4.5 1 PUFF INH IH SCH (07:25)
[2019-07-08] MEDS: Gabapentin 300 MG CAPSULE PO SCH (08:28)
[2019-07-08] MEDS: Nicotine 21 MG PATCH.TD24 TD SCH (08:29)
[2019-07-08] MEDS: Insulin LISPRO 300 UNITS/3 ML VIAL SQ SCH ×2 (08:29→12:16)
[2019-07-08] MEDS ORDERED: lisinopriL 10 MG TABLET PO SCH (09:00)
[2019-07-08 10:32] VITALS: BP 150/91
== END 2019-07-08 15:30 | disposition home or self-care (01) ==
LOC: 3ANU → SUATTDRO 21:48
PROVIDERS: ADMIT Internal Medicine; ATTEND Internal Medicine

== ENCOUNTER 2019-09-14 00:09 | Observation (INO) ==
[2019-09-14 03:10] LABS: Basophils # 0.1 K/mcL (0.0-0.2); Basophils % 0.5 %; Eosinophils # 0.3 K/mcL (0.0-0.6); Eosinophils % 2.6 %; Hematocrit 33.4 % (35.3-44.9); Immature Granulocytes % 0.3 % (0-4); Lymphocytes # 2.3 K/mcL (0.6-4.6); Lymphocytes % 18.9 %; Mean Corpuscular HGB Conc 35.9 g/dL (31.6-35.5); Mean Corpuscular Hemoglobin 31.6 pg (28.0-33.3); Mean Corpuscular Volume 87.9 fL (83.0-100.0); Monocytes # 0.8 K/mcL (0.0-1.3); Monocytes % 6.5 %; Neutrophils # 8.6 K/mcL (1.6-8.9); Platelet Count 276 K/mcL (140-400); Red Cell Distribution Width 12.8 % (11.5-14.5); Segmented Neutrophils % 71.2 %; White Blood Count 12.1 K/mcL (4.3-11.1)
[2019-09-14 03:35] LABS: Bilirubin,Urine Negative (Negative); Blood,Urine Trace (Negative); Clarity,Urine Clear (Clear); Color,Urine Yellow (Yellow); Glucose,Urine (UA) Normal (Normal); Ketones,Urine Negative (Negative); Leukocyte Esterase,Urine Negative (Negative); Nitrite,Urine Negative (Negative); Protein,Urine Trace mg/dL (Neg-Trace); Specific Gravity,Urine 1.007 (1.010-1.025); Urobilinogen,Urine Normal (Normal)
[2019-09-14 03:36] LABS: Bacteria,Urine None Seen per hpf (None-Few); Hyaline Casts,Urine None Seen per lpf (None-Few); RBC,Urine 0-3 per hpf (0-3); Squamous Epithelial Cell,Urine Few per lpf (None-Few); WBC,Urine 0-3 per hpf (0-3)
[2019-09-14 03:38] LABS: BUN/Creatinine Ratio 14 (6-26); Blood Urea Nitrogen 6 mg/dL (6-20); Calcium 9.3 mg/dL (8.6-10.3); Carbon Dioxide 26 mEq/L (23-29); Chloride 89 mEq/L (98-107); Glucose 185 mg/dL (70-105); Osmolality,Calculated 250 (280-300); Potassium 4.1 mEq/L (3.5-5.1); Sodium 119 mEq/L (136-145); eGFR For African Americans > 60 (> 60); eGFR For Non-African Americans > 60 (> 60)
[2019-09-14 03:44] LABS: Sodium, Urine 20.9 mEq/L
[2019-09-14] MEDS ORDERED: Naloxone 0.4 MG/ML INJ IVP PRN (04:40)
[2019-09-14] MEDS ORDERED: D5% in Water 1,000 ML IVC PRN (04:42)
[2019-09-14] MEDS ORDERED: Dextrose Gel 15 GM/37.5 ML TUBE PO PRN ×2 (04:42)
[2019-09-14] MEDS ORDERED: *HR* Dextrose 50 % in Water (Syg) 50 ML SYRINGE IVP PRN (04:42)
[2019-09-14 05:51] LABS: Troponin I < 0.03 ng/mL (< 0.04)
[2019-09-14] MEDS: Insulin LISPRO 300 UNITS/3 ML VIAL SQ SCH ×4 (06:12→15:35)
[2019-09-14] MEDS: *HR* Heparin 5,000 UNIT/ML VIAL SQ SCH ×2 (06:15→16:16)
[2019-09-14] MEDS: Nicotine 21 MG PATCH.TD24 TD SCH (09:48)
[2019-09-14] MEDS ORDERED: Ipratropium/Albuterol Neb 3 ML IH PRN (12:58)
[2019-09-14] MEDS: Gabapentin 300 MG CAPSULE PO SCH (16:16)
[2019-09-14] MEDS: Budesonide/Formoterol 160/4.5 1 PUFF INH IH SCH (20:16)
[2019-09-14] MEDS ORDERED: Insulin DETEMIR 100 UNIT/ML X5UNITS SQ SCH (21:00)
[2019-09-14] MEDS ORDERED: Insulin LISPRO 300 UNITS/3 ML VIAL SQ SCH (21:00)
[2019-09-14] MEDS: Famotidine 20 MG TABLET PO SCH (21:33)
[2019-09-14 23:22] LABS: BUN/Creatinine Ratio 26 (6-26); Blood Urea Nitrogen 15 mg/dL (6-20); Calcium 8.6 mg/dL (8.6-10.3); Carbon Dioxide 24 mEq/L (23-29); Chloride 96 mEq/L (98-107); Glucose 155 mg/dL (70-105); Osmolality,Calculated 284 (280-300); Sodium 135 mEq/L (136-145); eGFR For African Americans > 60 (> 60); eGFR For Non-African Americans > 60 (> 60)
[2019-09-15 05:16] LABS: Basophils # 0.1 K/mcL (0.0-0.2); Basophils % 0.8 %; Eosinophils # 0.2 K/mcL (0.0-0.6); Eosinophils % 2.8 %; Hematocrit 36.2 % (35.3-44.9); Hemoglobin 12.4 g/dL (11.5-15.4); Immature Granulocytes % 0.4 % (0-4); Lymphocytes # 1.7 K/mcL (0.6-4.6); Lymphocytes % 23.7 %; Mean Corpuscular HGB Conc 34.3 g/dL (31.6-35.5); Mean Corpuscular Hemoglobin 31.1 pg (28.0-33.3); Mean Corpuscular Volume 90.7 fL (83.0-100.0); Monocytes # 0.5 K/mcL (0.0-1.3); Monocytes % 7.1 %; Neutrophils # 4.7 K/mcL (1.6-8.9); Platelet Count 297 K/mcL (140-400); Red Blood Count 3.99 M/mcL (3.82-4.97); Segmented Neutrophils % 65.2 %; White Blood Count 7.2 K/mcL (4.3-11.1)
[2019-09-15] MEDS: Gabapentin 300 MG CAPSULE PO SCH ×3 (05:28→08:02)
[2019-09-15] MEDS: *HR* Heparin 5,000 UNIT/ML VIAL SQ SCH (05:29)
[2019-09-15 05:38] LABS: BUN/Creatinine Ratio 37 (6-26); Blood Urea Nitrogen 15 mg/dL (6-20); Calcium 8.7 mg/dL (8.6-10.3); Carbon Dioxide 21 mEq/L (23-29); Chloride 103 mEq/L (98-107); Glucose 146 mg/dL (70-105); Osmolality,Calculated 275 (280-300); Potassium 4.3 mEq/L (3.5-5.1); Sodium 131 mEq/L (136-145); eGFR For African Americans > 60 (> 60); eGFR For Non-African Americans > 60 (> 60)
[2019-09-15] MEDS: Nicotine 21 MG PATCH.TD24 TD SCH (08:02)
[2019-09-15] MEDS: Insulin LISPRO 300 UNITS/3 ML VIAL SQ SCH ×2 (08:02→11:27)
[2019-09-15] MEDS: Famotidine 20 MG TABLET PO SCH (08:02)
[2019-09-15] MEDS ORDERED: Magnesium Oxide 400 MG TABLET PO SCH (09:00)
[2019-09-15] MEDS ORDERED: lisinopriL 10 MG TABLET PO SCH (09:00)
[2019-09-15] MEDS: Budesonide/Formoterol 160/4.5 1 PUFF INH IH SCH (10:24)
[2019-09-15 11:15] VITALS: BP 156/61
== END 2019-09-15 12:22 | disposition home or self-care (01) ==
LOC: 2ANU → SUATTDRO 01:17
PROVIDERS: ADMIT Family Medicine; ATTEND Internal Medicine

== ENCOUNTER 2019-10-05 13:27 | Inpatient (IN) ==
[2019-10-05] MEDS ORDERED: Naloxone 0.4 MG/ML INJ IVP PRN (14:49)
[2019-10-05 16:06] LABS: Basophils % 0.2 %; Eosinophils # 0.1 K/mcL (0.0-0.6); Eosinophils % 0.5 %; Hematocrit 32.9 % (35.3-44.9); Immature Granulocytes % 0.4 % (0-4); Lymphocytes # 0.7 K/mcL (0.6-4.6); Lymphocytes % 7.6 %; Mean Corpuscular HGB Conc 33.4 g/dL (31.6-35.5); Mean Corpuscular Hemoglobin 30.3 pg (28.0-33.3); Mean Corpuscular Volume 90.6 fL (83.0-100.0); Mean Platelet Volume 8.6 fL (9.4-12.4); Monocytes # 0.4 K/mcL (0.0-1.3); Monocytes % 4.1 %; Neutrophils # 8.3 K/mcL (1.6-8.9); Platelet Count 320 K/mcL (140-400); Red Blood Count 3.63 M/mcL (3.82-4.97); Segmented Neutrophils % 87.2 %; White Blood Count 9.5 K/mcL (4.3-11.1)
[2019-10-05 16:10] LABS: INR 1.2; Prothrombin Time 13.5 Seconds (9.4-12.1)
[2019-10-05 16:31] LABS: BUN/Creatinine Ratio 16 (6-26); Blood Urea Nitrogen 6 mg/dL (6-20); Calcium 9.2 mg/dL (8.6-10.3); Carbon Dioxide 24 mEq/L (23-29); Chloride 97 mEq/L (98-107); Glucose 92 mg/dL (70-105); Osmolality,Calculated 263 (280-300); Potassium 4.1 mEq/L (3.5-5.1); Sodium 128 mEq/L (136-145); eGFR For African Americans > 60 (> 60); eGFR For Non-African Americans > 60 (> 60)
[2019-10-05] MEDS: *HR* Heparin 5,000 UNIT/ML VIAL SQ SCH (17:20)
[2019-10-05] MEDS ORDERED: Ipratropium/Albuterol Neb 3 ML IH PRN (17:23)
[2019-10-05 18:03] LABS: Sodium, Urine 36.7 mEq/L
[2019-10-05] MEDS ORDERED: Furosemide 40 MG/4 ML VIAL IVP ONE (18:26)
[2019-10-05] MEDS ORDERED: D5% in Water 1,000 ML IVC SCH (18:30)
[2019-10-05] MEDS: levoFLOXacin 750 MG TABLET PO SCH (18:53)
[2019-10-05 19:41] LABS: BUN/Creatinine Ratio 12 (6-26); Blood Urea Nitrogen 6 mg/dL (6-20); Calcium 9.2 mg/dL (8.6-10.3); Carbon Dioxide 25 mEq/L (23-29); Chloride 93 mEq/L (98-107); Glucose 186 mg/dL (70-105); Osmolality,Calculated 258 (280-300); Potassium 4.4 mEq/L (3.5-5.1); Sodium 123 mEq/L (136-145); eGFR For African Americans > 60 (> 60); eGFR For Non-African Americans > 60 (> 60)
[2019-10-05] MEDS: Budesonide/Formoterol 160/4.5 1 PUFF INH IH SCH (20:24)
[2019-10-05] MEDS: Gabapentin 300 MG CAPSULE PO SCH (20:35)
[2019-10-05] MEDS: lisinopriL 10 MG TABLET PO SCH (20:36)
[2019-10-05] MEDS ORDERED: Insulin LISPRO 300 UNITS/3 ML VIAL SQ SCH (21:00)
[2019-10-06 00:16] LABS: BUN/Creatinine Ratio 15 (6-26); Blood Urea Nitrogen 8 mg/dL (6-20); Calcium 8.8 mg/dL (8.6-10.3); Carbon Dioxide 24 mEq/L (23-29); Chloride 93 mEq/L (98-107); Glucose 181 mg/dL (70-105); Osmolality,Calculated 263 (280-300); Sodium 125 mEq/L (136-145); eGFR For African Americans > 60 (> 60); eGFR For Non-African Americans > 60 (> 60)
[2019-10-06 00:53] LABS: Basophils % 0.2 %; Eosinophils % 0.4 %; Hematocrit 30.2 % (35.3-44.9); Hemoglobin 10.2 g/dL (11.5-15.4); Immature Granulocytes % 0.5 % (0-4); Lymphocytes # 0.8 K/mcL (0.6-4.6); Lymphocytes % 9.5 %; Mean Corpuscular HGB Conc 33.8 g/dL (31.6-35.5); Mean Corpuscular Hemoglobin 30.4 pg (28.0-33.3); Mean Corpuscular Volume 89.9 fL (83.0-100.0); Mean Platelet Volume 8.8 fL (9.4-12.4); Monocytes # 0.4 K/mcL (0.0-1.3); Monocytes % 5.3 %; Neutrophils # 6.9 K/mcL (1.6-8.9); Platelet Count 304 K/mcL (140-400); Red Blood Count 3.36 M/mcL (3.82-4.97); Segmented Neutrophils % 84.1 %; White Blood Count 8.3 K/mcL (4.3-11.1)
[2019-10-06 04:30] LABS: BUN/Creatinine Ratio 19 (6-26); Blood Urea Nitrogen 8 mg/dL (6-20); Calcium 9.2 mg/dL (8.6-10.3); Carbon Dioxide 24 mEq/L (23-29); Chloride 94 mEq/L (98-107); Glucose 174 mg/dL (70-105); Osmolality,Calculated 263 (280-300); Potassium 4.1 mEq/L (3.5-5.1); Sodium 125 mEq/L (136-145); eGFR For African Americans > 60 (> 60); eGFR For Non-African Americans > 60 (> 60)
[2019-10-06] MEDS: *HR* Heparin 5,000 UNIT/ML VIAL SQ SCH ×3 (05:05→21:22)
[2019-10-06] MEDS: Nicotine 14 MG PATCH.TD24 TD SCH (07:34)
[2019-10-06] MEDS: Gabapentin 300 MG CAPSULE PO SCH ×3 (07:34→21:22)
[2019-10-06] MEDS: lisinopriL 10 MG TABLET PO SCH ×2 (07:34→21:22)
[2019-10-06] MEDS: levoFLOXacin 750 MG TABLET PO SCH (07:34)
[2019-10-06] MEDS: Magnesium Oxide 400 MG TABLET PO SCH (07:34)
[2019-10-06] MEDS: Insulin LISPRO 300 UNITS/3 ML VIAL SQ SCH ×4 (07:48→16:55)
[2019-10-06] MEDS: Budesonide/Formoterol 160/4.5 1 PUFF INH IH SCH ×2 (10:20→20:53)
[2019-10-06] MEDS ORDERED: Insulin DETEMIR 100 UNIT/ML X5UNITS SQ ONE (13:23)
[2019-10-06] MEDS: carvediloL 6.25 MG TABLET PO SCH (14:13)
[2019-10-07 00:51] LABS: Basophils % 0.3 %; Eosinophils % 0.5 %; Hematocrit 27.9 % (35.3-44.9); Hemoglobin 9.2 g/dL (11.5-15.4); Immature Granulocytes % 0.4 % (0-4); Mean Corpuscular Hemoglobin 29.8 pg (28.0-33.3); Mean Corpuscular Volume 90.3 fL (83.0-100.0); Mean Platelet Volume 8.7 fL (9.4-12.4); Monocytes # 0.6 K/mcL (0.0-1.3); Monocytes % 7.8 %; Neutrophils # 5.7 K/mcL (1.6-8.9); Platelet Count 298 K/mcL (140-400); Red Blood Count 3.09 M/mcL (3.82-4.97); Red Cell Distribution Width 13.1 % (11.5-14.5); White Blood Count 7.4 K/mcL (4.3-11.1)
[2019-10-07 01:05] LABS: BUN/Creatinine Ratio 25 (6-26); Blood Urea Nitrogen 13 mg/dL (6-20); Calcium 8.4 mg/dL (8.6-10.3); Carbon Dioxide 24 mEq/L (23-29); Chloride 95 mEq/L (98-107); Glucose 181 mg/dL (70-105); Osmolality,Calculated 263 (280-300); Potassium 3.9 mEq/L (3.5-5.1); Sodium 124 mEq/L (136-145); eGFR For African Americans > 60 (> 60); eGFR For Non-African Americans > 60 (> 60)
[2019-10-07 01:18] LABS: Iron < 10 mcg/dL (50-170); Magnesium 1.2 mg/dL (1.6-2.6); Transferrin 176 mg/dL (203-362)
[2019-10-07 01:27] LABS: Ferritin 112 ng/mL (10-120)
[2019-10-07 01:30] LABS: Folate 10.1 ng/mL (3.0-16.0)
[2019-10-07] MEDS: *HR* Heparin 5,000 UNIT/ML VIAL SQ SCH ×3 (05:09→21:24)
[2019-10-07] MEDS: Budesonide/Formoterol 160/4.5 1 PUFF INH IH SCH ×2 (07:35→22:26)
[2019-10-07] MEDS: Nicotine 14 MG PATCH.TD24 TD SCH (08:04)
[2019-10-07] MEDS: levoFLOXacin 750 MG TABLET PO SCH (08:04)
[2019-10-07] MEDS: Gabapentin 300 MG CAPSULE PO SCH ×3 (08:04→21:22)
[2019-10-07] MEDS: carvediloL 6.25 MG TABLET PO SCH ×2 (08:04→16:34)
[2019-10-07] MEDS: lisinopriL 10 MG TABLET PO SCH ×2 (08:04→21:22)
[2019-10-07] MEDS: Magnesium Oxide 400 MG TABLET PO SCH (08:04)
[2019-10-07] MEDS: Insulin DETEMIR 100 UNIT/ML X5UNITS SQ SCH (08:04)
[2019-10-07] MEDS: Insulin LISPRO 300 UNITS/3 ML VIAL SQ SCH ×3 (08:04→16:34)
[2019-10-07] MEDS: amLODIPine 5 MG TABLET PO SCH (09:19)
[2019-10-07 14:24] LABS: Hematocrit 28.4 % (35.3-44.9); Hemoglobin 9.5 g/dL (11.5-15.4)
[2019-10-07] MEDS ORDERED: Cyanocobalamin (B-12) 1,000 MCG/ML VIAL SQ ONE (15:05)
[2019-10-08 02:59] LABS: Basophils % 0.3 %; Eosinophils # 0.1 K/mcL (0.0-0.6); Eosinophils % 1.8 %; Hematocrit 27.1 % (35.3-44.9); Immature Granulocytes % 0.5 % (0-4); Lymphocytes # 1.2 K/mcL (0.6-4.6); Lymphocytes % 16.1 %; Mean Corpuscular HGB Conc 33.2 g/dL (31.6-35.5); Mean Corpuscular Volume 90.3 fL (83.0-100.0); Mean Platelet Volume 8.8 fL (9.4-12.4); Monocytes # 0.6 K/mcL (0.0-1.3); Neutrophils # 5.6 K/mcL (1.6-8.9); Platelet Count 316 K/mcL (140-400); Red Cell Distribution Width 13.1 % (11.5-14.5); Segmented Neutrophils % 73.3 %; White Blood Count 7.6 K/mcL (4.3-11.1)
[2019-10-08 03:03] LABS: BUN/Creatinine Ratio 37 (6-26); Blood Urea Nitrogen 18 mg/dL (6-20); Calcium 8.3 mg/dL (8.6-10.3); Carbon Dioxide 23 mEq/L (23-29); Chloride 94 mEq/L (98-107); Glucose 130 mg/dL (70-105); Osmolality,Calculated 262 (280-300); Potassium 3.8 mEq/L (3.5-5.1); Sodium 124 mEq/L (136-145); eGFR For African Americans > 60 (> 60); eGFR For Non-African Americans > 60 (> 60)
[2019-10-08] MEDS: *HR* Heparin 5,000 UNIT/ML VIAL SQ SCH (06:22)
[2019-10-08 07:42] VITALS: BP 143/78
[2019-10-08] MEDS: amLODIPine 5 MG TABLET PO SCH (08:17)
[2019-10-08] MEDS: levoFLOXacin 750 MG TABLET PO SCH (08:17)
[2019-10-08] MEDS: Nicotine 14 MG PATCH.TD24 TD SCH (08:17)
[2019-10-08] MEDS: Magnesium Oxide 400 MG TABLET PO SCH (08:17)
[2019-10-08] MEDS: lisinopriL 10 MG TABLET PO SCH (08:18)
[2019-10-08] MEDS: Gabapentin 300 MG CAPSULE PO SCH (08:18)
[2019-10-08] MEDS: carvediloL 6.25 MG TABLET PO SCH (08:18)
[2019-10-08] MEDS: Insulin DETEMIR 100 UNIT/ML X5UNITS SQ SCH (08:20)
[2019-10-08] MEDS: Insulin LISPRO 300 UNITS/3 ML VIAL SQ SCH (08:21)
[2019-10-08] MEDS ORDERED: Cyanocobalamin (B-12) 1,000 MCG TABLET PO SCH (09:00)
[2019-10-08] MEDS: Budesonide/Formoterol 160/4.5 1 PUFF INH IH SCH (11:16)
== END 2019-10-08 11:16 | disposition home health service (06) | DRG 420 ==
LOC: 2NNU → SUATTDRO 14:21
PROVIDERS: ADMIT Student in an Organized Health Care Education/Training Program; ATTEND Pharmacist

== ENCOUNTER 2022-01-26 20:03 | Inpatient (IN) ==
[2022-01-26] MEDS ORDERED: Vancomycin 1,500 MG/265 ML IV.SOLN IVPB ONE (23:00)
[2022-01-26] MEDS ORDERED: cefTRIAXone 2,000 MG in 0.9 % Sodium Chloride Mini Bag 100 ML IVPB ONE (23:01)
[2022-01-26 23:42] LABS: Basophils % 0.4 %; Eosinophils # 0.2 K/mcL (0.0-0.6); Eosinophils % 2.2 %; Hemoglobin 7.5 g/dL (11.5-15.4); Immature Granulocytes % 1.3 % (0-4); Lymphocytes # 1.2 K/mcL (0.6-4.6); Lymphocytes % 10.7 %; Mean Corpuscular HGB Conc 32.6 g/dL (31.6-35.5); Mean Corpuscular Hemoglobin 28.4 pg (28.0-33.3); Mean Corpuscular Volume 87.1 fL (83.0-100.0); Mean Platelet Volume 8.1 fL (9.4-12.4); Monocytes # 0.8 K/mcL (0.0-1.3); Monocytes % 7.5 %; Neutrophils # 8.6 K/mcL (1.6-8.9); Platelet Count 382 K/mcL (140-400); Red Blood Count 2.64 M/mcL (3.82-4.97); Red Cell Distribution Width 14.6 % (11.5-14.5); Segmented Neutrophils % 77.9 %; White Blood Count 11.1 K/mcL (4.3-11.1)
[2022-01-27 00:09] LABS: Albumin 2.8 g/dL (3.5-5.7); Albumin/Globulin Ratio 0.9 (1.1-2.2); Bilirubin,Direct 0.1 mg/dL (0.0-0.2); Bilirubin,Indirect 0.3 mg/dL (0.0-1.0); Bilirubin,Total 0.4 mg/dL (0.3-1.0); Calcium 7.8 mg/dL (8.6-10.3); Potassium 3.3 mEq/L (3.5-5.1); Total Protein 5.8 g/dL (6.4-8.9); Troponin I 0.03 ng/mL (< 0.04)
[2022-01-27] MEDS ORDERED: Iopamidol - 370 500 ML MLS IVP ONE (00:26)
[2022-01-27 01:31] LABS: Bacteria,Urine Few per hpf (None-Few); Bilirubin,Urine Negative (Negative); Blood,Urine Negative (Negative); Budding Yeast,Urine Few per hpf (None Seen); Clarity,Urine Turbid (Clear); Color,Urine Light-Yellow (Yellow); Glucose,Urine (UA) Normal (Normal); Ketones,Urine Negative (Negative); Leukocyte Esterase,Urine Large (Negative); Mucus,Urine Few per lpf (None-Few); Nitrite,Urine Positive (Negative); Protein,Urine 100 mg/dL (Neg-Trace); Squamous Epithelial Cell,Urine Few per hpf (None-Few); Urobilinogen,Urine Normal (Normal); WBC,Urine 50-100 per hpf (0-3)
[2022-01-27] MEDS ORDERED: Furosemide 20 MG/2 ML VIAL IVP ONE (01:49)
[2022-01-27] MEDS ORDERED: Acetaminophen 325 MG TABLET PO PRN (03:00)
[2022-01-27] MEDS ORDERED: D5% in Water 1,000 ML IVC PRN (03:00)
[2022-01-27] MEDS ORDERED: Ondansetron 4 MG/2 ML VIAL IVP PRN (03:00)
[2022-01-27] MEDS ORDERED: Naloxone 0.4 MG/ML INJ IVP PRN (03:00)
[2022-01-27] MEDS ORDERED: Dextrose Gel 15 GM/37.5 ML TUBE PO PRN ×2 (03:00)
[2022-01-27] MEDS ORDERED: *HR* Dextrose 50 % in Water (Syg) 50 ML SYRINGE IVP PRN (03:00)
[2022-01-27] MEDS ORDERED: Melatonin 3 MG TABLET PO PRN (03:00)
[2022-01-27] MEDS: Ipratropium/Albuterol Neb 3 ML IH SCH ×6 (03:46→23:06)
[2022-01-27] MEDS ORDERED: *HR* Labetalol 20 MG/4 ML SYRINGE IVP ONE (03:55)
[2022-01-27 04:22] LABS: Adenovirus Not Detected (Not Detect); Bordetella Pertussis Not Detected (Not Detect); Chlamydophila pneumoniae Not Detected (Not Detect); Coronavirus 229E Not Detected (Not Detect); Coronavirus HKU1 Not Detected (Not Detect); Coronavirus NL63 Not Detected (Not Detect); Coronavirus OC43 Not Detected (Not Detect); Human Metapneumovirus Not Detected (Not Detect); Human Rhinovirus/Enterovirus Not Detected (Not Detect); Influenza A Subtype 2009 H1 Not Detected (Not Detect); Influenza B Not Detected (Not Detect); Mycoplasma pneumoniae Not Detected (Not Detect); Parainfluenza Virus 1 Not Detected (Not Detect); Parainfluenza Virus 2 Not Detected (Not Detect); Parainfluenza Virus 3 Not Detected (Not Detect); Parainfluenza Virus 4 Not Detected (Not Detect); Respiratory Syncytial Virus Not Detected (Not Detect); SARS-CoV-2 Not Detected (Not Detect)
[2022-01-27] MEDS ORDERED: methylPREDNISolone 125 MG/2 ML VIAL IVP ONE (04:25)
[2022-01-27] MEDS: *HR* Heparin 5,000 UNIT/ML VIAL SQ SCH ×2 (05:24→16:54)
[2022-01-27 05:32] LABS: Basophils # 0.1 K/mcL (0.0-0.2); Basophils % 0.4 %; Eosinophils # 0.2 K/mcL (0.0-0.6); Eosinophils % 1.3 %; Hemoglobin 7.3 g/dL (11.5-15.4); Immature Granulocytes % 0.8 % (0-4); Lymphocytes # 0.6 K/mcL (0.6-4.6); Lymphocytes % 5.1 %; Mean Corpuscular HGB Conc 33.2 g/dL (31.6-35.5); Mean Corpuscular Hemoglobin 28.5 pg (28.0-33.3); Mean Corpuscular Volume 85.9 fL (83.0-100.0); Monocytes # 0.6 K/mcL (0.0-1.3); Monocytes % 4.9 %; Neutrophils # 10.5 K/mcL (1.6-8.9); Platelet Count 394 K/mcL (140-400); Red Blood Count 2.56 M/mcL (3.82-4.97); Red Cell Distribution Width 14.6 % (11.5-14.5); Segmented Neutrophils % 87.5 %
[2022-01-27 05:34] LABS: VBG HCO3 22 mEq/L (21-27); VBG PCO2 34 mmHg (41-51); VBG PH 7.43 pH Units (7.32-7.42); VBG PO2 116 mmHg (25-50)
[2022-01-27 05:52] LABS: Albumin 2.7 g/dL (3.5-5.7); Albumin/Globulin Ratio 0.9 (1.1-2.2); Bilirubin,Direct 0.1 mg/dL (0.0-0.2); Bilirubin,Indirect 0.3 mg/dL (0.0-1.0); Bilirubin,Total 0.4 mg/dL (0.3-1.0); Calcium 7.8 mg/dL (8.6-10.3); Chol/HDL Ratio 2.9 (0-4.9); Globulin 2.9 g/dL (2.4-3.5); Magnesium 0.8 mg/dL (1.6-2.6); Phosphorous 3.5 mg/dL (2.7-4.5); Potassium 3.4 mEq/L (3.5-5.1); Total Protein 5.6 g/dL (6.4-8.9)
[2022-01-27] MEDS: Budesonide/Formoterol 160/4.5 1 PUFF INH IH SCH ×2 (07:54→20:02)
[2022-01-27] MEDS ORDERED: carvediloL 6.25 MG TABLET PO SCH (08:00)
[2022-01-27] MEDS: Cefepime HCl 2,000 MG in 0.9 % Sodium Chloride 10 ML IVP SCH ×3 (08:28→23:53)
[2022-01-27] MEDS: Furosemide 40 MG/4 ML VIAL IVP SCH ×2 (08:28→15:56)
[2022-01-27] MEDS: Gabapentin 300 MG CAPSULE PO SCH ×3 (08:28→20:41)
[2022-01-27] MEDS: Insulin LISPRO 300 UNITS/3 ML VIAL SUBQ SCH ×4 (08:29→20:47)
[2022-01-27] MEDS: Azithromycin 250 MG TABLET PO SCH (08:29)
[2022-01-27] MEDS: Insulin DETEMIR 100 UNIT/ML X5UNITS SUBQ SCH ×2 (08:31→20:46)
[2022-01-27] MEDS ORDERED: cefTRIAXone 1,000 MG in Water for inj. (sterile) 10 ML IVP SCH (09:00)
[2022-01-27] MEDS ORDERED: Furosemide 40 MG/4 ML VIAL IVP SCH (09:00)
[2022-01-27] MEDS ORDERED: lisinopriL 10 MG TABLET PO SCH (09:00)
[2022-01-27] MEDS ORDERED: Vancomycin 1,250 MG/262.5 ML IV.SOLN IVPB SCH (12:00)
[2022-01-27] MEDS ORDERED: Vancomycin 1,500 MG/265 ML IV.SOLN IVPB SCH (12:00)
[2022-01-27] MEDS ORDERED: MethylPREDNISolone 40 MG/ML VIAL IVP SCH (12:00)
[2022-01-27] MEDS ORDERED: Valsartan 80 MG TABLET PO SCH (14:30)
[2022-01-27] MEDS: carvediloL 6.25 MG TABLET PO SCH (15:56)
[2022-01-27] MEDS ORDERED: Ipratropium/Albuterol Neb 3 ML IH PRN (17:53)
[2022-01-27 20:30] LABS: Hematocrit 22.6 % (35.3-44.9); Hemoglobin 7.4 g/dL (11.5-15.4)
[2022-01-27] MEDS: amLODIPine 5 MG TABLET PO SCH (20:41)
[2022-01-28] MEDS: Ipratropium/Albuterol Neb 3 ML IH SCH ×5 (04:34→19:52)
[2022-01-28 04:57] LABS: Basophils % 0.2 %; Hematocrit 22.1 % (35.3-44.9); Hemoglobin 7.3 g/dL (11.5-15.4); Immature Granulocytes % 1.9 % (0-4); Lymphocytes # 0.6 K/mcL (0.6-4.6); Lymphocytes % 6.6 %; Mean Corpuscular Hemoglobin 28.5 pg (28.0-33.3); Mean Corpuscular Volume 86.3 fL (83.0-100.0); Mean Platelet Volume 8.4 fL (9.4-12.4); Monocytes # 0.3 K/mcL (0.0-1.3); Monocytes % 2.9 %; Neutrophils # 7.6 K/mcL (1.6-8.9); Platelet Count 365 K/mcL (140-400); Red Blood Count 2.56 M/mcL (3.82-4.97); Segmented Neutrophils % 88.4 %; White Blood Count 8.5 K/mcL (4.3-11.1)
[2022-01-28 05:22] LABS: Calcium 7.9 mg/dL (8.6-10.3); Magnesium 1.6 mg/dL (1.6-2.6); Potassium 4.2 mEq/L (3.5-5.1)
[2022-01-28] MEDS: *HR* Heparin 5,000 UNIT/ML VIAL SQ SCH ×2 (05:44→16:17)
[2022-01-28] MEDS: Budesonide/Formoterol 160/4.5 1 PUFF INH IH SCH ×2 (07:25→19:50)
[2022-01-28] MEDS: Insulin LISPRO 300 UNITS/3 ML VIAL SUBQ SCH ×4 (08:36→21:04)
[2022-01-28] MEDS: Cefepime HCl 2,000 MG in 0.9 % Sodium Chloride 10 ML IVP SCH ×3 (08:37→23:26)
[2022-01-28] MEDS: Furosemide 40 MG/4 ML VIAL IVP SCH (08:39)
[2022-01-28] MEDS: Cyanocobalamin (B-12) 1,000 MCG TABLET PO SCH (08:39)
[2022-01-28] MEDS: Azithromycin 250 MG TABLET PO SCH (08:39)
[2022-01-28] MEDS: Loratadine 10 MG TABLET PO SCH (08:39)
[2022-01-28] MEDS: Gabapentin 300 MG CAPSULE PO SCH ×3 (08:39→21:05)
[2022-01-28] MEDS: carvediloL 6.25 MG TABLET PO SCH ×2 (08:39→16:17)
[2022-01-28] MEDS: *HR* Metformin 500 MG TABLET PO SCH ×2 (08:40→16:17)
[2022-01-28] MEDS: Insulin DETEMIR 100 UNIT/ML X5UNITS SUBQ SCH ×2 (08:55→21:06)
[2022-01-28] MEDS ORDERED: Albumin 25% 25gram/100mL 25 GM/100 ML IV.SOLN IVPB ONE (11:21)
[2022-01-28] MEDS: amLODIPine 5 MG TABLET PO SCH (21:06)
[2022-01-29] MEDS: Ipratropium/Albuterol Neb 3 ML IH SCH ×7 (00:44→23:36)
[2022-01-29 02:44] LABS: Calcium 8.1 mg/dL (8.6-10.3); Magnesium 1.4 mg/dL (1.6-2.6); Phosphorous 3.1 mg/dL (2.7-4.5); Potassium 4.1 mEq/L (3.5-5.1)
[2022-01-29 02:52] LABS: Basophils % 0.3 %; Eosinophils # 0.1 K/mcL (0.0-0.6); Eosinophils % 0.6 %; Hematocrit 22.5 % (35.3-44.9); Hemoglobin 7.1 g/dL (11.5-15.4); Immature Granulocytes % 0.8 % (0-4); Lymphocytes # 1.3 K/mcL (0.6-4.6); Lymphocytes % 10.2 %; Mean Corpuscular HGB Conc 31.6 g/dL (31.6-35.5); Mean Corpuscular Hemoglobin 27.6 pg (28.0-33.3); Mean Corpuscular Volume 87.5 fL (83.0-100.0); Mean Platelet Volume 8.5 fL (9.4-12.4); Monocytes # 0.6 K/mcL (0.0-1.3); Monocytes % 4.4 %; Neutrophils # 10.6 K/mcL (1.6-8.9); Platelet Count 383 K/mcL (140-400); Red Blood Count 2.57 M/mcL (3.82-4.97); Red Cell Distribution Width 15.1 % (11.5-14.5); Segmented Neutrophils % 83.7 %; White Blood Count 12.7 K/mcL (4.3-11.1)
[2022-01-29] MEDS: *HR* Heparin 5,000 UNIT/ML VIAL SQ SCH ×2 (05:05→17:27)
[2022-01-29] MEDS: Budesonide/Formoterol 160/4.5 1 PUFF INH IH SCH ×2 (07:21→20:11)
[2022-01-29] MEDS: Insulin LISPRO 300 UNITS/3 ML VIAL SUBQ SCH ×4 (07:45→20:21)
[2022-01-29] MEDS: Loratadine 10 MG TABLET PO SCH (07:46)
[2022-01-29] MEDS: *HR* Metformin 500 MG TABLET PO SCH ×2 (07:46→17:27)
[2022-01-29] MEDS: Gabapentin 300 MG CAPSULE PO SCH ×3 (07:46→20:22)
[2022-01-29] MEDS: Cyanocobalamin (B-12) 1,000 MCG TABLET PO SCH (07:46)
[2022-01-29] MEDS: Azithromycin 250 MG TABLET PO SCH (08:02)
[2022-01-29] MEDS: carvediloL 6.25 MG TABLET PO SCH ×2 (08:02→17:27)
[2022-01-29] MEDS: Insulin DETEMIR 100 UNIT/ML X5UNITS SUBQ SCH ×2 (08:03→20:21)
[2022-01-29] MEDS ORDERED: Furosemide 40 MG/4 ML VIAL IVP SCH (09:00)
[2022-01-29] MEDS ORDERED: Albuterol 2.5 MG/3 ML NEBULIZER IH ONE (10:59)
[2022-01-29] MEDS ORDERED: *HR* FentaNYL (PF) 100 MCG/2 ML VIAL ONE (11:23)
[2022-01-29] MEDS ORDERED: *HR* Rocuronium Bromide 50 MG/5 ML VIAL ONE (11:24)
[2022-01-29] MEDS ORDERED: Lidocaine HCL 4 ML Topical Solution (Laryng-O-Jet Kit Sterile Pak) TP ONE (11:24)
[2022-01-29] MEDS ORDERED: *HR* Succinylcholine 200 MG/10 ML VIAL IVP ONE (11:24)
[2022-01-29] MEDS ORDERED: Lidocaine -MPF 2% 2 ML VIAL ONE (11:24)
[2022-01-29] MEDS ORDERED: Ondansetron 4 MG/2 ML VIAL ONE (11:24)
[2022-01-29] MEDS ORDERED: *HR* Propofol 200 MG/20 ML VIAL IVP ONE (11:27)
[2022-01-29] MEDS ORDERED: *HR* Midazolam HCl 2 MG/2 ML VIAL ONE (11:28)
[2022-01-29] MEDS ORDERED: Ondansetron 4 MG/2 ML VIAL IVP PRN (13:31)
[2022-01-29] MEDS: Cefepime HCl 2,000 MG in 0.9 % Sodium Chloride 10 ML IVP SCH ×2 (13:31→23:01)
[2022-01-29] MEDS ORDERED: Albuterol 2.5 MG/3 ML NEBULIZER IH PRN (13:31)
[2022-01-29] MEDS: amLODIPine 5 MG TABLET PO SCH (20:22)
[2022-01-30] MEDS: Ipratropium/Albuterol Neb 3 ML IH SCH ×5 (03:55→20:44)
[2022-01-30 05:20] LABS: Basophils % 0.1 %; Hematocrit 22.6 % (35.3-44.9); Immature Granulocytes % 0.9 % (0-4); Lymphocytes # 0.6 K/mcL (0.6-4.6); Lymphocytes % 6.5 %; Mean Corpuscular Hemoglobin 27.3 pg (28.0-33.3); Mean Corpuscular Volume 88.3 fL (83.0-100.0); Mean Platelet Volume 8.6 fL (9.4-12.4); Monocytes # 0.2 K/mcL (0.0-1.3); Monocytes % 2.7 %; Neutrophils # 7.6 K/mcL (1.6-8.9); Platelet Count 325 K/mcL (140-400); Red Blood Count 2.56 M/mcL (3.82-4.97); Red Cell Distribution Width 14.7 % (11.5-14.5); Segmented Neutrophils % 89.8 %; White Blood Count 8.4 K/mcL (4.3-11.1)
[2022-01-30] MEDS: *HR* Heparin 5,000 UNIT/ML VIAL SQ SCH ×2 (05:34→16:34)
[2022-01-30 05:38] LABS: Albumin 3.1 g/dL (3.5-5.7); Calcium 8.5 mg/dL (8.6-10.3); Phosphorous 3.8 mg/dL (2.7-4.5); Potassium 4.9 mEq/L (3.5-5.1); Uric Acid 7.5 mg/dL (2.3-7.6)
[2022-01-30 05:47] LABS: Thyroid Stimulating Hormone 0.778 mcIU/mL (0.340-5.600)
[2022-01-30 05:58] LABS: Folate 5.1 ng/mL (3.0-16.0)
[2022-01-30] MEDS: Loratadine 10 MG TABLET PO SCH (07:01)
[2022-01-30] MEDS: Insulin LISPRO 300 UNITS/3 ML VIAL SUBQ SCH ×4 (07:01→20:12)
[2022-01-30] MEDS: Insulin DETEMIR 100 UNIT/ML X5UNITS SUBQ SCH ×2 (07:01→20:12)
[2022-01-30] MEDS: Cyanocobalamin (B-12) 1,000 MCG TABLET PO SCH (07:01)
[2022-01-30] MEDS: Gabapentin 300 MG CAPSULE PO SCH ×3 (07:01→20:12)
[2022-01-30] MEDS: Azithromycin 250 MG TABLET PO SCH (07:01)
[2022-01-30] MEDS: carvediloL 6.25 MG TABLET PO SCH ×2 (07:02→16:34)
[2022-01-30] MEDS: Budesonide/Formoterol 160/4.5 1 PUFF INH IH SCH ×2 (08:11→20:44)
[2022-01-30] MEDS: Cefepime HCl 2,000 MG in 0.9 % Sodium Chloride 10 ML IVP SCH ×2 (10:51→23:10)
[2022-01-30] MEDS ORDERED: Sodium Bicarbonate 75 MEQ in 0.45 % Sodium Chloride 1,000 ML IVC SCH (14:15)
[2022-01-30] MEDS ORDERED: *HR* Labetalol 20 MG/4 ML SYRINGE IVP ONE (16:35)
[2022-01-30] MEDS: carvediloL 25 MG TABLET PO SCH (16:42)
[2022-01-30] MEDS ORDERED: carvediloL 25 MG TABLET PO SCH (17:00)
[2022-01-30] MEDS: amLODIPine 5 MG TABLET PO SCH (20:12)
[2022-01-31] MEDS: Ipratropium/Albuterol Neb 3 ML IH SCH ×5 (00:11→16:06)
[2022-01-31 02:26] LABS: Basophils % 0.2 %; Eosinophils # 0.1 K/mcL (0.0-0.6); Eosinophils % 0.8 %; Hematocrit 23.7 % (35.3-44.9); Hemoglobin 7.6 g/dL (11.5-15.4); Immature Granulocytes % 0.8 % (0-4); Lymphocytes # 1.4 K/mcL (0.6-4.6); Lymphocytes % 9.7 %; Mean Corpuscular HGB Conc 32.1 g/dL (31.6-35.5); Mean Corpuscular Hemoglobin 27.5 pg (28.0-33.3); Mean Corpuscular Volume 85.9 fL (83.0-100.0); Mean Platelet Volume 8.5 fL (9.4-12.4); Monocytes # 0.6 K/mcL (0.0-1.3); Monocytes % 4.3 %; Platelet Count 335 K/mcL (140-400); Red Blood Count 2.76 M/mcL (3.82-4.97); Red Cell Distribution Width 15.1 % (11.5-14.5); Segmented Neutrophils % 84.2 %
[2022-01-31 02:27] LABS: Neutrophils # 12.3 K/mcL (1.6-8.9); White Blood Count 14.6 K/mcL (4.3-11.1)
[2022-01-31 02:53] LABS: Calcium 8.9 mg/dL (8.6-10.3); Magnesium 1.7 mg/dL (1.6-2.6); Potassium 5.1 mEq/L (3.5-5.1)
[2022-01-31] MEDS: *HR* Heparin 5,000 UNIT/ML VIAL SQ SCH (05:08)
[2022-01-31] MEDS: Insulin LISPRO 300 UNITS/3 ML VIAL SUBQ SCH ×3 (08:00→16:25)
[2022-01-31] MEDS: Azithromycin 250 MG TABLET PO SCH (08:01)
[2022-01-31] MEDS: Loratadine 10 MG TABLET PO SCH (08:01)
[2022-01-31] MEDS: Gabapentin 300 MG CAPSULE PO SCH ×2 (08:01→14:21)
[2022-01-31] MEDS: carvediloL 25 MG TABLET PO SCH ×2 (08:01→16:25)
[2022-01-31] MEDS: Cyanocobalamin (B-12) 1,000 MCG TABLET PO SCH (08:02)
[2022-01-31] MEDS: Insulin DETEMIR 100 UNIT/ML X5UNITS SUBQ SCH (08:04)
[2022-01-31] MEDS: Budesonide/Formoterol 160/4.5 1 PUFF INH IH SCH (10:59)
[2022-01-31 11:20] VITALS: BP 150/52; PULSE 65; TEMP 97.7; O2SAT 96
[2022-01-31] MEDS: Cefepime HCl 2,000 MG in 0.9 % Sodium Chloride 10 ML IVP SCH (11:21)
[2022-02-02 15:12] LABS: Alpha 2 Globulin (PEP) 1.16 g/dL (0.48-1.05); Beta Globulin (PEP) 0.65 g/dL (0.48-1.10)
[2022-02-03 10:59] LABS: IFE Reflexed NOT DONE
== END 2022-01-31 17:57 | disposition home or self-care (01) | DRG 139 ==
LOC: 2NENU 20:03 → EMEROOARM 20:03 → 2NENU 01-27 03:02
PROVIDERS: ADMIT Internal Medicine; ATTEND Internal Medicine
PROC: ENDOLBX (2022-01-29 10:30)